=== PATIENT | female | born 1950 | race Caucasian/White ===

== ENCOUNTER → 2018-01-28 07:36 | Outpatient (CLI) | payer MEDICARE, SELFPAY ==
[2018-01-28 07:58] LABS: HCT 36.6 % (36.0-46.0); HGB 11.3 g/dL (12.0-15.5); Mean Corp. HGB Concentration 30.9 g/dL (32.0-36.0); Mean Corpuscular Hemoglobin 23.8 pg (27.0-33.0); Mean Corpuscular Volume 77.1 fL (80-95); Mean Platelet Volume 9.5 fL (8.0-11.0); Platelet Count 279 x1000/uL (130-400); RBC 4.75 m/cumm (4.00-5.20); RBC Distribution Width 17.1 % (11.7-14.6); White Blood Cell Count 4.75 k/cumm (4.4-10.8)
[2018-01-28 08:07] LABS: Prothrombin Time 19.4 sec (9.3-10.8)
[2018-01-28 08:26] LABS: Hemoglobin A1C 5.8 % (4.5-6.2)
[2018-01-28 09:23] LABS: ALT 32 U/L (12-78); AST 26 U/L (15-37); Albumin 3.6 g/dL (3.4-5.0); Alkaline Phosphatase 110 U/L (46-116); Anion Gap 4.5 mmol/L (3-11); BUN 18 mg/dL (7-18); Bilirubin, Total 0.4 mg/dL (0.2-1.0); CO2 30.5 mmol/L (21.0-32.0); CREATININE 0.94 mg/dL (0.55-1.02); Calcium 8.7 mg/dL (8.5-10.1); Chloride 108 mmol/L (98-107); Cholesterol 187 mg/dL (50-200); Estimated GFR 59.04 (mL/min/1.73m2); Glucose 97 mg/dL (70-100); HDL Cholesterol 42 mg/dL (40-60); LDL CHOLESTEROL 118 mg/dL (<100); Potassium 3.8 mmol/L (3.5-5.1); Sodium 143 mmol/L (136-145); Total Protein 6.4 g/dL (6.4-8.2); Triglyceride 147 mg/dL (30-150)
== END ==
PROVIDERS: PCP Family Medicine; Visit Provider Family Medicine
DX: E11.9 Type 2 diabetes mellitus without complications (principal); I35.8 Other nonrheumatic aortic valve disorders; I10 Essential (primary) hypertension; D64.9 Anemia, unspecified; Z95.2 Presence of prosthetic heart valve; Z79.01 Long term (current) use of anticoagulants
CPT/HCPCS: 36415; 80053; 80061; 83721; 85027; 83036; 85610

== ENCOUNTER 2018-03-08 12:56 | Outpatient (CLI) | payer MEDICARE, SELFPAY ==
[2018-03-08 13:50] LABS: INR 2.2 (1.0-3.5); Prothrombin Time 20.7 sec (9.3-10.8)
== END 2018-03-08 13:16 ==
PROVIDERS: PCP Family Medicine; Visit Provider Family Medicine
DX: I35.0 Nonrheumatic aortic (valve) stenosis (principal); Z95.2 Presence of prosthetic heart valve; Z79.01 Long term (current) use of anticoagulants
CPT/HCPCS: 36415; 85610

== ENCOUNTER 2018-03-15 16:34 | Outpatient (CLI) | payer MEDICARE, SELFPAY ==
[2018-03-15 17:35] LABS: INR 3.2 (1.0-3.5); Prothrombin Time 30.1 sec (9.3-10.8)
== END 2018-03-15 16:54 ==
PROVIDERS: PCP Family Medicine; Visit Provider Family Medicine
DX: I08.0 Rheumatic disorders of both mitral and aortic valves (principal); Z79.01 Long term (current) use of anticoagulants; Z95.2 Presence of prosthetic heart valve
CPT/HCPCS: 36415; 85610

== ENCOUNTER 2018-03-22 13:14 | Outpatient (CLI) | payer MEDICARE, SELFPAY ==
[2018-03-22 14:03] LABS: INR 2.7 (1.0-3.5); Prothrombin Time 25.3 sec (9.3-10.8)
[2018-03-22 14:26] LABS: HCT 35.6 % (36.0-46.0)
== END 2018-03-22 13:34 ==
PROVIDERS: PCP Family Medicine; Visit Provider Family Medicine
DX: D64.9 Anemia, unspecified (principal); Z95.2 Presence of prosthetic heart valve; Z79.01 Long term (current) use of anticoagulants; I35.8 Other nonrheumatic aortic valve disorders
CPT/HCPCS: 36415; 85014; 85018; 85610

== ENCOUNTER 2018-04-19 13:07 | Outpatient (CLI) | payer MEDICARE, SELFPAY ==
[2018-04-19 14:02] LABS: Prothrombin Time 28.1 sec (9.3-10.8)
== END 2018-04-19 13:27 ==
PROVIDERS: PCP Family Medicine; Visit Provider Family Medicine
DX: I35.8 Other nonrheumatic aortic valve disorders (principal); Z95.2 Presence of prosthetic heart valve; Z79.01 Long term (current) use of anticoagulants
CPT/HCPCS: 36415; 85610

== ENCOUNTER 2018-05-14 15:01 | Emergency (ER) | payer MEDICARE, SELFPAY ==
--- NOTE | 2018-05-14 15:06 | NUR.NOTE ---
Nursing Note:Went to waiting room to begin triage process, patient has gone to the bathroom
[2018-05-14 15:08] VITALS: BP 171/83; PULSE 89; RESP 16; TEMP 36.4; O2SAT 100
--- NOTE | 2018-05-14 16:44 | W.ED.GENAD ---
Discharge Plan Disposition Patient Disposition: HOME Condition: Improving Discharge Details Chief Complaint: DentalOral Clinical Impression: Tongue laceration, Supratherapeutic INR Primary Care Provider: Radhika Irving ED Provider: Laura Sheppard Home Meds and New Rx's Prescriptions: Continue amoxicillin 500 MG capsule 2,000 mg PO ONCE RF: 0 Metoprolol Succinate 50 MG TAB.ER.24H 50 mg PO DAILY Qty: 90 RF: 12 fluticasone [Flonase Allergy Relief] 9.9 ML spray,suspension 1 spray NS HS RF: 0 atorvastatin [Lipitor] 40 MG tablet 1 tab PO HS Qty: 90 RF: 3 warfarin 2.5 MG tablet 1 - 2 tab PO DAILY Qty: 180 RF: 3 potassium chloride 20 MEQ tablet,ER particles/crystals 1 tab PO DAILY Qty: 90 RF: 3 omeprazole 20 MG capsule,delayed release(DR/EC) 1 cap PO DAILY Qty: 90 RF: 3 hydrochlorothiazide 25 MG tablet 25 mg PO DAILY Qty: 90 RF: 12 albuterol sulfate [ProAir HFA] 8.5 GM HFA aerosol inhaler 1 - 2 puff Inhalation Q4H PRN Qty: 3 RF: 2 escitalopram oxalate [Lexapro] 10 MG tablet 1 tab PO DAILY Qty: 90 RF: 3 Discharge Instructions Instructions: Laceration (ED) Additional Instructions: Hold your Coumadin dose tonight. Take half of your Coumadin dose tomorrow night then resume your normal Coumadin dosing on Thursday night. Reapply Gelfoam to your tongue if the bleeding restarts. Follow-up with your primary care doctor's appointment on Thursday. Call your primary care doctor's office on Thursday to arrange for an INR check on Thursday. Return immediately to the emergency department any worsening or new concerning symptoms. Discharge Data Discharge Date/Time-TO BE ENTERED AT DEPARTURE: 05/14/18 17:54 Discharge Physician: Laura Sheppard Medical Decision Making 67 yo F with a history of aortic valve replacement on Coumadin who presents for persistent oozing from superficial laceration on tongue sustained this morning after biting her tongue accidentally. There is an approximate 1-2 mm superficial laceration on top of tongue with mild oozing. No open gaping wounds. Patient appears nontoxic and in no acute distress. Blood pressure mildly hypertensive. Heart rate within normal limits. Remainder vitals within normal limits. Will check PT/INR and place 1 suture to area. 1740 -- 2 vicryl sutures placed and area covered with gelfoam and bleeding stopped. INR 4.5. In the setting of minor bleeding, will hold dose of coumadin tonight. Pt states she would rather also half her dose of coumadin tomorrow night and will have her INR checked Thursday. Pt has appt with pcp in 5 days. Instructed to return with any worsening or new concerning symptoms. Patient was given remainder of Gelfoam packet for home in case bleeding returns. She was sent home with Gelfoam and gauze still in place and was instructed to remove this in the next couple hours. She was instructed to avoid hot foods and eat cold soft foods including cold liquids, yogurt, milk shakes. HPI General Mode of arrival: ambulatory. Date/Time Provider Initiated Documentation: 05/14/18 15:03. Limitations to Documentation: no limitations. Information obtained by: patient. HPI Narrative: Patient is a 67-year-old female who presents with persistent bleeding from a tongue laceration sustained today after she bit her tongue while eating. Patient is on Coumadin for aortic valve replacement. States her last INR check was 3 weeks ago and it was 3.0. She denies any dizziness, chest pain or shortness of breath. Related Data Home Medications Medication Instructions Recorded Confirmed amoxicillin 2,000 mg PO ONCE cap 08/22/13 05/14/18 fluticasone [Flonase Allergy 1 spray NS HS 05/07/17 05/14/18 Relief] albuterol sulfate [ProAir HFA] 1 - 2 puff INHALATION Q4H PRN #3 09/17/17 05/14/18 inhaler atorvastatin [Lipitor] 1 tab PO HS #90 tab 09/17/17 05/14/18 escitalopram oxalate [Lexapro] 1 tab PO DAILY #90 tab 09/17/17 hydrochlorothiazide 25 mg PO DAILY #90 tab 09/17/17 omeprazole 1 cap PO DAILY #90 cap 09/17/17 05/14/18 potassium chloride 1 tab PO DAILY #90 tab 09/17/17 warfarin 1 - 2 tab PO DAILY #180 tab 09/17/17 05/14/18 Previous Rx's Medication Instructions Recorded albuterol sulfate [ProAir HFA] 1 - 2 puff INHALATION Q4H PRN #3 09/17/17 inhaler atorvastatin [Lipitor] 1 tab PO HS #90 tab 09/17/17 escitalopram oxalate [Lexapro] 1 tab PO DAILY #90 tab 09/17/17 hydrochlorothiazide 25 mg PO DAILY #90 tab 09/17/17 omeprazole 1 cap PO DAILY #90 cap 09/17/17 potassium chloride 1 tab PO DAILY #90 tab 09/17/17 warfarin 1 - 2 tab PO DAILY #180 tab 09/17/17 Allergies Allergy/AdvReac Type Severity Reaction Status Date / Time sulfamethoxazole Allergy Severe chills,gillian Unverified 05/14/18 15:38 [From Bactrim] es,bumps trimethoprim [From Bactrim] Allergy Severe chills,gillian Unverified 05/14/18 15:38 es,bumps pollen extracts Allergy Intermediate Unverified 05/14/18 15:38 General Stated Complaint: DentalOral CHAD: 4 Review of Systems Review of Systems All systems reviewed & are unremarkable except as noted in HPI and below Constitutional Reports as per HPI, Denies chills and Denies fever(s) Eyes Denies blurry vision ENT Denies dizziness, Denies sore throat and Denies throat swelling Cardiovascular Denies chest pain and Denies dyspnea Respiratory Denies dyspnea Gastrointestinal Denies abdominal pain, Denies diarrhea and Denies vomiting Genitourinary Denies hematuria and Denies dysuria Musculoskeletal Denies back pain and Denies numbness Integumentary/Breasts Denies lesions and Denies rash Neurologic Denies dizziness and Denies numbness Allergic/Immunologic Denies throat swelling PFSH Family History Mother Neoplasm Father Diabetes Alcohol abuse Heart disease Cerebrovascular accident Brother No problems noted. Grandfather Heart disease Grandfather No problems noted. Grandmother Neoplasm Grandmother Depression Son No problems noted. Daughter No problems noted. Social History Smoking/Tobacco Use Status: Never Surgical History Colonoscopy - MAC (~2004) Endometrial Biopsy (~2002) Extraction of cataract Kidney Stone Extraction (~1997) Exam Const General: cooperative, healthy appearing and no acute distress HENMT Head: normal to inspection Mouth: other Mouth/tongue images: 1. 2 mm superficial laceration noted to top of tongue with oozing blood. Throat: posterior oropharynx normal Eyes General: appearance normal, both eyes and all related structures Neck Neck: normal visual inspection Resp Effort & Inspection: normal respiratory effort and able to speak in complete sentences Cardio Rate: regular rate Skin General skin exam: no rashes or lesions noted Neuro General: alert, awake and oriented x3 Motor: muscle tone normal throughout Extrem General: normal to inspection and full ROM Psych Appearance: grossly normal Affect: normal affect Course Vital Signs Temperature 97.5 F L 05/14/18 15:08 Pulse 89 05/14/18 15:08 Respiratory Rate 16 05/14/18 15:08 Blood Pressure 171/83 H 05/14/18 15:08 Pulse Oximetry 100 05/14/18 15:08 Temperature 97.5 F L 05/14/18 15:08 Temperature Source Temporal Artery Scan 05/14/18 15:08 Pulse 89 05/14/18 15:08 Respiratory Rate 16 05/14/18 15:08 Respiratory Effort Non-Labored 05/14/18 15:10 Blood Pressure 171/83 H 05/14/18 15:08 Blood Pressure Position Sitting 05/14/18 15:08 Pulse Oximetry 100 05/14/18 15:08 Oxygen Delivery Method Room Air 05/14/18 15:08 Oxygen Flow Rate 0 05/14/18 15:08 Pain Level 0 05/14/18 15:08 Procedures Laceration Laceration 1: Site: other (tongue) Size (cm): 0.2 Local Anesthetic: other anesthetic (viscous lidocaine) Skin layer closed with: vicryl Size (cm): 4-0 Number of sutures: 2 Technique: simple, interrupted
[2018-05-14 16:45] LABS: Prothrombin Time 41.4 sec (9.3-10.8)
[2018-05-14] MEDS: Lidocaine 2% Viscous 15 ML CUP (16:46)
[2018-05-14 17:00] LABS: INR 4.5 (1.0-3.5)
[2018-05-14] MEDS: Gelatin SPONGE 12-7 MM PKT 1 EACH TP (17:00)
[2018-05-14 17:40] VITALS: BP 175/75; PULSE 101; RESP 18; O2SAT 99
[2018-05-14 17:50] VITALS: BP 175/75; PULSE 101; RESP 18; O2SAT 99
== END 2018-05-14 17:54 | disposition home or self-care (01) ==
LOC: ER 18:23
PROVIDERS: Emergency Provider Physician Assistant; PCP Family Medicine
DX: S00.572A Other superficial bite of oral cavity, initial encounter (principal); X58.XXXA Exposure to other specified factors, initial encounter; R79.1 Abnormal coagulation profile; T45.515A Adverse effect of anticoagulants, initial encounter; Z79.01 Long term (current) use of anticoagulants; I10 Essential (primary) hypertension
CPT/HCPCS: 12011; 85610

== ENCOUNTER 2018-05-15 08:42 | Emergency (ER) | payer MEDICARE, SELFPAY ==
[2018-05-15 08:47] VITALS: BP 151/64; PULSE 96; RESP 16; TEMP 36.6; O2SAT 100
--- NOTE | 2018-05-15 09:18 | W.ED.GENAD ---
Discharge Plan Disposition Patient Disposition: HOME Condition: Stable Discharge Details Chief Complaint: Recheck Clinical Impression: Oral bleeding Primary Care Provider: Radhika Irving ED Provider: Laura Sheppard Home Meds and New Rx's Prescriptions: Continue amoxicillin 500 MG capsule 2,000 mg PO ONCE RF: 0 Metoprolol Succinate 50 MG TAB.ER.24H 50 mg PO DAILY Qty: 90 RF: 12 fluticasone [Flonase Allergy Relief] 9.9 ML spray,suspension 1 spray NS HS RF: 0 atorvastatin [Lipitor] 40 MG tablet 1 tab PO HS Qty: 90 RF: 3 warfarin 2.5 MG tablet 1 - 2 tab PO DAILY Qty: 180 RF: 3 omeprazole 20 MG capsule,delayed release(DR/EC) 1 cap PO DAILY Qty: 90 RF: 3 albuterol sulfate [ProAir HFA] 8.5 GM HFA aerosol inhaler 1 - 2 puff Inhalation Q4H PRN Qty: 3 RF: 2 Discharge Instructions Instructions: Laceration (ED), Acute Wound Care (ED) Additional Instructions: If the Gelfoam moves, or falls out, or becomes saturated with blood, replaced with another half piece of Gelfoam and covered with a piece of gauze. Keep the area covered with Gelfoam and gauze for the next 2 days. Follow-up with your primary care doctor or return to the hospital on Thursday for recheck INR. If you continue to have bleeding today, consider holding your dose of Coumadin tonight. If the bleeding stops, half your dose of Coumadin tonight. Resume your normal Coumadin dosing tomorrow. Return immediately to the emergency department any worsening or new concerning symptoms. Discharge Data Discharge Date/Time-TO BE ENTERED AT DEPARTURE: 05/15/18 10:36 Discharge Physician: Laura Sheppard Medical Decision Making 67-year-old female with a history of aortic valve replacement on Coumadin who presents for persistent tongue bleeding. She was seen here yesterday for a tongue laceration, had 2 Vicryl sutures placed, Gelfoam and gauze applied. Recheck INR was 4.5, and she held her Coumadin dose last night. Bleeding restarted after drinking fluids in the middle of night. Patient appears nontoxic. BP hypertensive, remainder of vitals within normal limits. 2 Vicryl sutures are noted in place. There is a 1 x 1 cm hematoma with mild oozing of blood to the left of the sutures. No evidence of infection. Gelfoam and gauze was applied over the hematoma and pt was observed for over an hour. The gelfoam was not saturated and was removed and the bleeding stopped. Due to concern for persistent bleeding due to movement of tongue with drinking and eating, 3 drops of phenylephrine/lidocaine solution were applied to a new piece of gelfoam and then a piece of gauze was placed over the gelfoam. When she went home last night, she removed the Gelfoam shortly after. It appears that the hematoma is likely the source of the bleeding, and if patient is able to keep the Gelfoam and gauze in place, the blood may resorb. She was given a packet of Gelfoam and gauze for home to replace if the Gelfoam falls out or become saturated. Offered to check another INR, but patient is declining and states she would rather check this Thursday as previously planned. Patient instructed to return here immediately with any worsening or new concerning symptoms HPI General Mode of arrival: ambulatory. Date/Time Provider Initiated Documentation: 05/15/18 09:11. Limitations to Documentation: no limitations. Information obtained by: patient. HPI Narrative: 67-year-old female with a history of aortic valve replacement on Coumadin who presents for recheck for persistent tongue bleeding. Patient was seen here yesterday for a tongue laceration after she bit her tongue while eating. She had 2 Vicryl sutures placed, Gelfoam and her INR was noted to be 4.5 and she was instructed to hold her coumadin dose last night, half the dose tonight, and resume her normal dosing tomorrow. She states when she got home last night her bleeding resolved for 6 hours, and then when she drank fluids in the night, she awoke to a mouthful of blood in the morning. She denies fever, chest pain, shortness of breath, headache or dizziness. Related Data Home Medications Medication Instructions Recorded Confirmed amoxicillin 2,000 mg PO ONCE cap 08/22/13 05/15/18 fluticasone [Flonase Allergy 1 spray NS HS 05/07/17 05/15/18 Relief] albuterol sulfate [ProAir HFA] 1 - 2 puff INHALATION Q4H PRN #3 09/17/17 05/15/18 inhaler atorvastatin [Lipitor] 1 tab PO HS #90 tab 09/17/17 05/15/18 omeprazole 1 cap PO DAILY #90 cap 09/17/17 05/15/18 warfarin 1 - 2 tab PO DAILY #180 tab 09/17/17 05/15/18 Previous Rx's Medication Instructions Recorded albuterol sulfate [ProAir HFA] 1 - 2 puff INHALATION Q4H PRN #3 09/17/17 inhaler atorvastatin [Lipitor] 1 tab PO HS #90 tab 09/17/17 omeprazole 1 cap PO DAILY #90 cap 09/17/17 warfarin 1 - 2 tab PO DAILY #180 tab 09/17/17 Allergies Allergy/AdvReac Type Severity Reaction Status Date / Time sulfamethoxazole Allergy Severe chills,gillian Unverified 05/15/18 08:51 [From Bactrim] es,bumps trimethoprim [From Bactrim] Allergy Severe chills,gillian Unverified 05/15/18 08:51 es,bumps pollen extracts Allergy Intermediate Unverified 05/15/18 08:51 General Stated Complaint: Recheck CHAD: 5 Review of Systems Review of Systems All systems reviewed & are unremarkable except as noted in HPI and below Constitutional Reports as per HPI, Denies chills and Denies fever(s) Eyes Denies blurry vision ENT Denies dizziness, Denies sore throat and Denies throat swelling Cardiovascular Denies chest pain and Denies dyspnea Respiratory Denies dyspnea Gastrointestinal Denies abdominal pain, Denies diarrhea and Denies vomiting Genitourinary Denies hematuria and Denies dysuria Musculoskeletal Denies back pain and Denies numbness Integumentary/Breasts Denies lesions and Denies rash Neurologic Denies dizziness and Denies numbness Allergic/Immunologic Denies throat swelling Exam Const General: cooperative, healthy appearing and no acute distress HENMT Head: normal to inspection Mouth: other (2-0 Vicryl sutures noted in place. To the left of the Vicryl sutures is an approximately 1 x 1 cm hematoma with mild oozing of blood. There is no induration or fluctuance.) Throat: posterior oropharynx normal Eyes General: appearance normal, both eyes and all related structures Neck Neck: normal visual inspection Resp Effort & Inspection: normal respiratory effort and able to speak in complete sentences Cardio Rate: regular rate Skin General skin exam: no rashes or lesions noted Neuro General: alert, awake and oriented x3 Motor: muscle tone normal throughout Extrem General: normal to inspection and full ROM Psych Appearance: grossly normal Affect: normal affect Course Vital Signs Temperature 97.9 F 05/15/18 08:47 Pulse 96 H 05/15/18 08:47 Respiratory Rate 16 05/15/18 08:47 Blood Pressure 151/64 H 05/15/18 08:47 Pulse Oximetry 100 05/15/18 08:47 Temperature 97.9 F 05/15/18 08:47 Temperature Source Skin 05/15/18 08:47 Pulse 96 H 05/15/18 08:47 Respiratory Rate 16 05/15/18 08:47 Respiratory Effort Non-Labored 05/15/18 08:49 Blood Pressure 151/64 H 05/15/18 08:47 Pulse Oximetry 100 05/15/18 08:47 Pain Level 0 05/15/18 08:47
[2018-05-15] MEDS: Gelatin SPONGE 12-7 MM PKT 1 EACH TP (10:18)
== END 2018-05-15 10:36 | disposition home or self-care (01) ==
LOC: ER 10:37
PROVIDERS: Emergency Provider Physician Assistant; PCP Family Medicine
DX: S01.552A Open bite of oral cavity, initial encounter (principal); X58.XXXA Exposure to other specified factors, initial encounter; Z79.01 Long term (current) use of anticoagulants

== ENCOUNTER 2018-05-15 17:59 | Emergency (ER) | payer MEDICARE, SELFPAY ==
[2018-05-15 18:03] VITALS: BP 146/105; PULSE 104; RESP 16; O2SAT 99
[2018-05-15] MEDS: Silver Nitrate Stick 1 EACH (18:16)
[2018-05-15] MEDS: Gelatin SPONGE 12-7 MM PKT 1 EACH TP ×2 (18:30→20:17)
--- NOTE | 2018-05-15 18:31 | W.ED.GENAD ---
Discharge Plan Disposition Patient Disposition: HOME Condition: Stable Discharge Details Chief Complaint: Recheck Clinical Impression: Tongue laceration Primary Care Provider: Radhika Irving ED Provider: Laura Sheppard Home Meds and New Rx's Prescriptions: New amoxicillin-pot clavulanate 400-57 mg/5 mL suspension for reconstitution 10 ml PO BID 2 Days Qty: 40 RF: 0 Continue amoxicillin 500 MG capsule 2,000 mg PO ONCE RF: 0 Metoprolol Succinate 50 MG TAB.ER.24H 50 mg PO DAILY Qty: 90 RF: 12 fluticasone [Flonase Allergy Relief] 9.9 ML spray,suspension 1 spray NS HS RF: 0 atorvastatin [Lipitor] 40 MG tablet 1 tab PO HS Qty: 90 RF: 3 warfarin 2.5 MG tablet 1 - 2 tab PO DAILY Qty: 180 RF: 3 omeprazole 20 MG capsule,delayed release(DR/EC) 1 cap PO DAILY Qty: 90 RF: 3 albuterol sulfate [ProAir HFA] 8.5 GM HFA aerosol inhaler 1 - 2 puff Inhalation Q4H PRN Qty: 3 RF: 2 Discharge Instructions Instructions: Laceration (ED) Additional Instructions: Follow a clear liquid diet for the next few days. Either hold or half your dose of coumadin tonight. Resume your normal Coumadin dosing tomorrow. Take the antibiotics as directed. Avoid any hot foods or liquids. Mainly drink cool liquids and foods. You will receive a call from certified social workers in health care regarding follow-up with ENT (ears, nose and throat). Return immediately to the emergency department any worsening or new concerning symptoms. Referrals: Saleem Willard MD [ [facility]] - Discharge Data Discharge Physician: Laura Sheppard Medical Decision Making 67-year-old female with history of aortic valve placed on Coumadin who presents for persistent tongue bleeding. Patient was seen here yesterday for a tongue laceration after accidentally biting and had 2 Vicryl sutures placed and covered with Gelfoam. She presented back earlier today for persistent tongue bleeding and had Gelfoam with phenylephrine and lidocaine placed. She states she had no bleeding for 6 hours today and then tonight the bleeding returned again. Patient's INR yesterday was 4.5 and she was instructed to hold her Coumadin dose last night. She declined to check her INR earlier today on her ED visit. She is now agreeable to check an INR at this time. The 2 Vicryl sutures are still noted in place. The hematoma noted earlier does appear more flat and is oozing, and likely has ruptured from movement of the tongue. There is no pulsatile bleeding. 3 silver nitrate sticks were used to stop the bleeding and there still appears to be mild oozing. Another piece of Gelfoam with 3 drops of phenylephrine/lidocaine were placed and covered with a 2 x 2 gauze. I am concerned to use any other form of treatment that can cause a clot, as any movement of her tongue or eating, will likely rupture it. Will check a repeat INR and call [facility] ENT for any further recommendations. 1844 -- d/w ENT - recommend washing with half-strength hydrogen peroxide, placing a [id number] stitch with 3-0 chromic and cover with silver nitrate if needed. Recommend f/u with ENT. Patient has a history of aortic valve replacement. Will cover with Augmentin for 48 hours. Due to difficulty with swallowing and need to be on a clear liquid diet, will give Augmentin suspension. Dose of 10 mg Augmentin given here in bottle for home. Patient was instructed on clear liquid diet and avoiding hot foods or drinks. Patient was instructed to return here with any worsening symptoms. 2009 -- Pt still had some bleeding and another gelfoam was placed on top of remaining gelfoam which is saturated with blood. There is some oozing around the base layer Gelfoam. Multiple 2 x 2's and Kerlix were wrapped around and pressure held and bleeding appears to have been controlled. Patient was given multiple Kerlix and gauze for home and additional gelfoam. Pt had more bleeding again prior to dc and second layer of Gelfoam was removed and Surgicel was placed on top followed by 2 x 2 gauze and Kerlix. HPI General Mode of arrival: ambulatory. Date/Time Provider Initiated Documentation: 05/15/18 18:14. Limitations to Documentation: no limitations. Information obtained by: patient. HPI Narrative: Pt is a 67yo F who presents for recheck of persistent tongue bleeding. Pt was seen here earlier today for persistent tongue bleeding after sustained a laceration after biting yesterday. Patient has a history of aortic valve replacement and is on Coumadin. INR yesterday was 4.5. Yesterday she had 2 Vicryl sutures placed. This morning she returned and there was a hematoma which is bleeding near the area, a piece of Gelfoam with phenylephrine and lidocaine was placed to the affected area. Patient states she went home today and had no bleeding for 6 hours and then just a little while ago, the bleeding returned and saturated the gelfoam. Related Data Home Medications Medication Instructions Recorded Confirmed amoxicillin 2,000 mg PO ONCE cap 08/22/13 05/15/18 fluticasone [Flonase Allergy 1 spray NS HS 05/07/17 05/15/18 Relief] albuterol sulfate [ProAir HFA] 1 - 2 puff INHALATION Q4H PRN #3 09/17/17 05/15/18 inhaler atorvastatin [Lipitor] 1 tab PO HS #90 tab 09/17/17 05/15/18 omeprazole 1 cap PO DAILY #90 cap 09/17/17 05/15/18 warfarin 1 - 2 tab PO DAILY #180 tab 09/17/17 05/15/18 amoxicillin-pot clavulanate 10 ml PO BID 2 Days #40 ml 05/15/18 Previous Rx's Medication Instructions Recorded albuterol sulfate [ProAir HFA] 1 - 2 puff INHALATION Q4H PRN #3 09/17/17 inhaler atorvastatin [Lipitor] 1 tab PO HS #90 tab 09/17/17 omeprazole 1 cap PO DAILY #90 cap 09/17/17 warfarin 1 - 2 tab PO DAILY #180 tab 09/17/17 amoxicillin-pot clavulanate 10 ml PO BID 2 Days #40 ml 05/15/18 Allergies Allergy/AdvReac Type Severity Reaction Status Date / Time sulfamethoxazole Allergy Severe chills,gillian Unverified 05/15/18 18:07 [From Bactrim] es,bumps trimethoprim [From Bactrim] Allergy Severe chills,gillian Unverified 05/15/18 18:07 es,bumps pollen extracts Allergy Intermediate Unverified 05/15/18 18:07 General Stated Complaint: Recheck CHAD: 4 Review of Systems Review of Systems All systems reviewed & are unremarkable except as noted in HPI and below Exam Const General: cooperative, healthy appearing and no acute distress [facility] Head: normal to inspection Mouth: other Mouth/tongue images: 1. A 1 x 1 cm hematoma noted to the left of 2 Vicryl sutures with mild oozing on the distal aspect. Hematoma appears flatter compared to earlier today. Eyes General: appearance normal, both eyes and all related structures Neck Neck: normal visual inspection Resp Effort & Inspection: normal respiratory effort and able to speak in complete sentences Cardio Rate: regular rate Skin General skin exam: no rashes or lesions noted Neuro General: alert, awake and oriented x3 Motor: muscle tone normal throughout Extrem General: normal to inspection and full ROM Psych Appearance: grossly normal Affect: normal affect Course Vital Signs Pulse 104 H 05/15/18 18:03 Respiratory Rate 16 05/15/18 18:03 Blood Pressure 146/105 H 05/15/18 18:03 Pulse Oximetry 99 05/15/18 18:03 Pulse 104 H 05/15/18 18:03 Respiratory Rate 16 05/15/18 18:03 Respiratory Effort Non-Labored 05/15/18 18:06 Blood Pressure 146/105 H 05/15/18 18:03 Pulse Oximetry 99 05/15/18 18:03 Pain Level 0 05/15/18 18:03
--- NOTE | 2018-05-15 18:39 | ED.GENADUL_ITS ---
Discharge Plan Disposition Patient Disposition: HOME Condition: Stable Discharge Details Chief Complaint: Recheck Clinical Impression: Tongue laceration Primary Care Provider: Radhika Irving ED Provider: Laura Sheppard Home Meds and New Rx's Prescriptions: New amoxicillin-pot clavulanate 400-57 mg/5 mL suspension for reconstitution 10 ml PO BID 2 Days Qty: 40 RF: 0 Continue amoxicillin 500 MG capsule 2,000 mg PO ONCE RF: 0 Metoprolol Succinate 50 MG TAB.ER.24H 50 mg PO DAILY Qty: 90 RF: 12 fluticasone [Flonase Allergy Relief] 9.9 ML spray,suspension 1 spray NS HS RF: 0 atorvastatin [Lipitor] 40 MG tablet 1 tab PO HS Qty: 90 RF: 3 warfarin 2.5 MG tablet 1 - 2 tab PO DAILY Qty: 180 RF: 3 omeprazole 20 MG capsule,delayed release(DR/EC) 1 cap PO DAILY Qty: 90 RF: 3 albuterol sulfate [ProAir HFA] 8.5 GM HFA aerosol inhaler 1 - 2 puff Inhalation Q4H PRN Qty: 3 RF: 2 Discharge Instructions Instructions: Laceration (ED) Additional Instructions: Follow a clear liquid diet for the next few days. Either hold or half your dose of coumadin tonight. Resume your normal Coumadin dosing tomorrow. Take the antibiotics as directed. Avoid any hot foods or liquids. Mainly drink cool liquids and foods. You will receive a call from child caregiver regarding follow-up with ENT (ears, nose and throat). Return immediately to the emergency department any worsening or new concerning symptoms. Referrals: Saleem Willard MD [ [facility]] - Discharge Data Discharge Physician: Laura Sheppard Medical Decision Making 67-year-old female with history of aortic valve placed on Coumadin who presents for persistent tongue bleeding. Patient was seen here yesterday for a tongue laceration after accidentally biting and had 2 Vicryl sutures placed and covered with Gelfoam. She presented back earlier today for persistent tongue bleeding and had Gelfoam with phenylephrine and lidocaine placed. She states she had no bleeding for 6 hours today and then tonight the bleeding returned again. Patient's INR yesterday was 4.5 and she was instructed to hold her Coumadin dose last night. She declined to check her INR earlier today on her ED visit. She is now agreeable to check an INR at this time. The 2 Vicryl sutures are still noted in place. The hematoma noted earlier does appear more flat and is oozing, and likely has ruptured from movement of the tongue. There is no pulsatile bleeding. 3 silver nitrate sticks were used to stop the bleeding and there still appears to be mild oozing. Another piece of Gelfoam with 3 drops of phenylephrine/lidocaine were placed and covered with a 2 x 2 gauze. I am concerned to use any other form of treatment that can cause a clot, as any movement of her tongue or eating, will likely rupture it. Will check a repeat INR and call [facility]NT for any further recommendations. 1844 -- d/w ENT - recommend washing with half-strength hydrogen peroxide, placing a [id number] stitch with 3-0 chromic and cover with silver nitrate if needed. Recommend f/u with ENT. Patient has a history of aortic valve replacement. Will cover with Augmentin for 48 hours. Due to difficulty with swallowing and need to be on a clear liquid diet, will give Augmentin suspension. Dose of 10 mg Augmentin given here in bottle for home. Patient was instructed on clear liquid diet and avoiding hot foods or drinks. Patient was instructed to return here with any worsening symptoms. 2009 -- Pt still had some bleeding and another gelfoam was placed on top of remaining gelfoam which is saturated with blood. There is some oozing around the base layer Gelfoam. Multiple 2 x 2's and Kerlix were wrapped around and pressure held and bleeding appears to have been controlled. Patient was given multiple Kerlix and gauze for home and additional gelfoam. Pt had more bleeding again prior to dc and second layer of Gelfoam was removed and Surgicel was placed on top followed by 2 x 2 gauze and Kerlix. HPI General Mode of arrival: ambulatory . Date/Time Provider Initiated Documentation: 05/15/18 18:14 . Limitations to Documentation: no limitations . Information obtained by: patient . HPI Narrative: Pt is a 67yo F who presents for recheck of persistent tongue bleeding. Pt was seen here earlier today for persistent tongue bleeding after sustained a laceration after biting yesterday. Patient has a history of aortic valve replacement and is on Coumadin. INR yesterday was 4.5. Yesterday she had 2 Vicryl sutures placed. This morning she returned and there was a hematoma which is bleeding near the area, a piece of Gelfoam with phenylephrine and lidocaine was placed to the affected area. Patient states she went home today and had no bleeding for 6 hours and then just a little while ago, the bleeding returned and saturated the gelfoam. Related Data Home Medications Medication Instructions Recorded Confirmed amoxicillin 2,000 mg PO ONCE cap 08/22/13 05/15/18 fluticasone [Flonase Allergy 1 spray NS HS 05/07/17 05/15/18 Relief] albuterol sulfate [ProAir HFA] 1 - 2 puff INHALATION Q4H PRN #3 09/17/17 inhaler atorvastatin [Lipitor] 1 tab PO HS #90 tab 09/17/17 05/15/18 omeprazole 1 cap PO DAILY #90 cap 09/17/17 05/15/18 warfarin 1 - 2 tab PO DAILY #180 tab 09/17/17 05/15/18 amoxicillin-pot clavulanate 10 ml PO BID 2 Days #40 ml 05/15/18 Previous Rx's Medication Instructions Recorded albuterol sulfate [ProAir HFA] 1 - 2 puff INHALATION Q4H PRN #3 09/17/17 inhaler atorvastatin [Lipitor] 1 tab PO HS #90 tab 09/17/17 omeprazole 1 cap PO DAILY #90 cap 09/17/17 warfarin 1 - 2 tab PO DAILY #180 tab 09/17/17 amoxicillin-pot clavulanate 10 ml PO BID 2 Days #40 ml 05/15/18 Allergies Allergy/AdvReac Type Severity Reaction Status Date / Time sulfamethoxazole Allergy Severe chills,gillian Unverified 05/15/18 18:07 [From Bactrim] es,bumps trimethoprim [From Bactrim] Allergy Severe chills,gillian Unverified 05/15/18 18:07 es,bumps pollen extracts Allergy Intermediate Unverified 05/15/18 18:07 General Stated Complaint: Recheck CHAD: 4 Review of Systems Review of Systems All systems reviewed & are unremarkable except as noted in HPI and below Exam Const General: cooperative, healthy appearing and no acute distress [facility] Head: normal to inspection Mouth: other Mouth/tongue images: 2 1. A 1 x 1 cm hematoma noted to the left of 2 Vicryl sutures with mild oozing on the distal aspect. Hematoma appears flatter compared to earlier today. Eyes General: appearance normal, both eyes and all related structures Neck Neck: normal visual inspection Resp Effort & Inspection: normal respiratory effort and able to speak in complete sentences Cardio Rate: regular rate Skin General skin exam: no rashes or lesions noted Neuro General: alert, awake and oriented x3 Motor: muscle tone normal throughout Extrem General: normal to inspection and full ROM Psych Appearance: grossly normal Affect: normal affect Course Vital Signs Pulse 104 H 05/15/18 18:03 Respiratory Rate 16 05/15/18 18:03 Blood Pressure 146/105 H 05/15/18 18:03 Pulse Oximetry 99 05/15/18 18:03 Pulse 104 H 05/15/18 18:03 Respiratory Rate 16 05/15/18 18:03 Respiratory Effort Non-Labored 05/15/18 18:06 Blood Pressure 146/105 H 05/15/18 18:03 Pulse Oximetry 99 05/15/18 18:03 Pain Level 0 05/15/18 18:03
[2018-05-15 19:07] LABS: Prothrombin Time 22.2 sec (9.3-10.8)
[2018-05-15] MEDS: Hydrogen Peroxide 3% 480 ML BTL (19:07)
[2018-05-15] MEDS: Lidocaine 2% Viscous 15 ML CUP (19:07)
[2018-05-15 19:11] LABS: INR 2.3 (1.0-3.5)
[2018-05-15] MEDS: Amoxicillin 400 MG/Clav. 57 MG 100 ML BTL 10 ML PO (20:01)
[2018-05-15] MEDS: Cellulose,Oxidized 2X3 PKT 1 EACH MC ×3 (20:31→20:39)
== END 2018-05-15 20:46 | disposition home or self-care (01) ==
PROVIDERS: Emergency Provider Physician Assistant; PCP Family Medicine
DX: S01.552A Open bite of oral cavity, initial encounter (principal); X58.XXXA Exposure to other specified factors, initial encounter; Z79.01 Long term (current) use of anticoagulants
CPT/HCPCS: 36415; 85610

== ENCOUNTER 2018-05-16 02:23 | Emergency (ER) | payer MEDICARE, SELFPAY ==
[2018-05-16] VITALS (15 sets, daily range): BP systolic 139–146; BP diastolic 59–79; PULSE 92–99; RESP 14–21; TEMP 36.3–36.7; O2SAT 99–100
--- NOTE | 2018-05-16 02:48 | W.ED.GENAD ---
Discharge Plan Disposition Patient Disposition: HOME Condition: Stable Discharge Details Chief Complaint: Dizzy/Sync Clinical Impression: Hemorrhage of tongue Primary Care Provider: Radhika Irving ED Provider: Jerome Gandara Home Meds and New Rx's Prescriptions: Continue fluticasone [Flonase Allergy Relief] 9.9 ML spray,suspension 1 spray NS HS RF: 0 atorvastatin [Lipitor] 40 MG tablet 1 tab PO HS Qty: 90 RF: 3 warfarin 2.5 MG tablet 1 - 2 tab PO DAILY Qty: 180 RF: 3 omeprazole 20 MG capsule,delayed release(DR/EC) 1 cap PO DAILY Qty: 90 RF: 3 albuterol sulfate [ProAir HFA] 8.5 GM HFA aerosol inhaler 1 - 2 puff Inhalation Q4H PRN Qty: 3 RF: 2 amoxicillin-pot clavulanate 400-57 mg/5 mL suspension for reconstitution 10 ml PO BID 2 Days Qty: 40 RF: 0 Discharge Instructions Additional Instructions: if you have bleeding again, apply a txa soaked gauze to the wound and hold it there for 20 minutes. If it continues to bleed apply another txa gauze to the wound and hold for 20 minutes. IF it continues to bleed after this return to the emergency department for evaluation Medical Decision Making PT comes in with 2 days of tongue bleeding. Was seen in the ED past 2 days with several stitches placed and surgicell but despite this continue to have bleeding in the anterior superior portion of the tongue. Tonight while standing felt lightheaded, denies chest pain or sob, suspect orthostasis from lack of eating/drinking due to wound but will check cbc to eval for anemia. She still has small oozing area in the bleeding area, will attempt applying txa on the wound oozing stopped after txa soaked gauze placed. Will have nursing place surgicell and gauze and given no significant oral fluids will hydrate IV before she leaves. Cbc shows no significant anemia, likely had orthostasis earlier Differential Diagnosis orthostasis, anemia Lab Data Lab results reviewed: Yes I reviewed the patient's lab results. ECG Data Attestation: I personally reviewed and interpreted this ECG (s) as follows: Prior ECG tracings: not available for review Interpretation: sinus rhythm, pac's, pr 198, rate of 98 HPI General Mode of arrival: wheelchair. Date/Time Provider Initiated Documentation: 05/16/18 02:31. Limitations to Documentation: no limitations. Information obtained by: patient. History of Present Illness 67 year old F presents to the emergency department with the chief complaint of tongue bleeding, described as mild, and is localized to the mouth. Patient reports no radiation. No relieving factors improve symptom(s), No exacerbating factors reported . Related Data Home Medications Medication Instructions Recorded Confirmed fluticasone [Flonase Allergy 1 spray NS HS 05/07/17 05/16/18 Relief] albuterol sulfate [ProAir HFA] 1 - 2 puff INHALATION Q4H PRN #3 09/17/17 05/16/18 inhaler atorvastatin [Lipitor] 1 tab PO HS #90 tab 09/17/17 05/16/18 omeprazole 1 cap PO DAILY #90 cap 09/17/17 05/16/18 warfarin 1 - 2 tab PO DAILY #180 tab 09/17/17 05/16/18 amoxicillin-pot clavulanate 10 ml PO BID 2 Days #40 ml 05/15/18 05/16/18 Previous Rx's Medication Instructions Recorded albuterol sulfate [ProAir HFA] 1 - 2 puff INHALATION Q4H PRN #3 09/17/17 inhaler atorvastatin [Lipitor] 1 tab PO HS #90 tab 09/17/17 omeprazole 1 cap PO DAILY #90 cap 09/17/17 warfarin 1 - 2 tab PO DAILY #180 tab 09/17/17 amoxicillin-pot clavulanate 10 ml PO BID 2 Days #40 ml 05/15/18 Allergies Allergy/AdvReac Type Severity Reaction Status Date / Time sulfamethoxazole Allergy Severe chills,gillian Unverified 05/16/18 02:45 [From Bactrim] es,bumps trimethoprim [From Bactrim] Allergy Severe chills,gillian Unverified 05/16/18 02:45 es,bumps pollen extracts Allergy Intermediate Unverified 05/16/18 02:45 General Stated Complaint: Dizzy/Sync CHAD: 3 Review of Systems Review of Systems All systems reviewed & are unremarkable except as noted in HPI and below Constitutional Denies chills and Denies fever(s) ENT Denies change in voice Cardiovascular Denies chest pain and Denies dyspnea Respiratory Denies dyspnea Gastrointestinal Denies abdominal pain, Denies nausea and Denies vomiting Musculoskeletal Denies joint swelling Exam Const General: no acute distress Orientation: alert HENMT Head: normal to inspection Ears: external ears normal General nose exam: external nose normal Mouth: moist mucous membranes Eyes General: appearance normal, both eyes and all related structures Neck Neck: normal visual inspection Resp Effort & Inspection: normal respiratory effort and able to speak in complete sentences Cardio Rate: regular rate Skin General skin exam: no rashes or lesions noted Neuro General: alert and oriented x3 Extrem General: normal to inspection Psych Mental Status: mental status grossly normal Course Vital Signs Temperature 36.3 C L 05/16/18 02:28 Pulse 95 H 05/16/18 02:28 Respiratory Rate 19 05/16/18 02:28 Blood Pressure 146/59 H 05/16/18 02:28 Pulse Oximetry 100 05/16/18 02:28 Temperature 36.3 C L 05/16/18 02:28 Temperature Source Skin 05/16/18 02:28 Pulse 95 H 05/16/18 02:28 Respiratory Rate 19 05/16/18 02:28 Respiratory Effort Non-Labored 05/16/18 02:33 Blood Pressure 146/59 H 05/16/18 02:28 Pulse Oximetry 100 05/16/18 02:28 Oxygen Delivery Method Room Air 05/16/18 02:28 Oxygen Flow Rate 0 05/16/18 02:28 Pain Level 0 05/16/18 02:28
[2018-05-16 02:57] LABS: HCT 35.9 % (36.0-46.0); HGB 11.1 g/dL (12.0-15.5); Mean Corp. HGB Concentration 30.9 g/dL (32.0-36.0); Mean Corpuscular Hemoglobin 23.7 pg (27.0-33.0); Mean Corpuscular Volume 76.7 fL (80-95); Mean Platelet Volume 9.3 fL (8.0-11.0); Platelet Count 251 x1000/uL (130-400); RBC 4.68 m/cumm (4.00-5.20); RBC Distribution Width 17.1 % (11.7-14.6); White Blood Cell Count 7.57 k/cumm (4.4-10.8)
[2018-05-16] MEDS: Tranexamic Acid 1,000 MG/10 ML VIAL 1000 MG (02:58)
[2018-05-16] MEDS: Normal Saline 1,000 ML 1000 ML IV ×2 (03:10→03:44)
[2018-05-16] MEDS: Normal Saline Flush 10 ML SYR IVP (03:10)
[2018-05-16] MEDS: Cellulose,Oxidized 4X8 1 PACKET MC (03:44)
== END 2018-05-16 04:25 | disposition home or self-care (01) ==
LOC: ER 04:25
PROVIDERS: Emergency Provider Emergency Medicine; PCP Family Medicine
DX: S01.512A Laceration without foreign body of oral cavity, initial encounter (principal); W26.8XXA Contact with other sharp object(s), not elsewhere classified, initial encounter; K14.8 Other diseases of tongue; T45.515A Adverse effect of anticoagulants, initial encounter; Z79.01 Long term (current) use of anticoagulants; I10 Essential (primary) hypertension
CPT/HCPCS: 36415; 36416; 82962; 85027; 93005; 96360; 99284; 93010; J3490

== ENCOUNTER 2018-05-18 14:34 | Outpatient (CLI) | payer MEDICARE, SELFPAY ==
[2018-05-18 15:22] LABS: INR 2.5 (1.0-3.5); Prothrombin Time 23.9 sec (9.3-10.8)
== END 2018-05-18 14:54 ==
PROVIDERS: PCP Family Medicine; Visit Provider Family Medicine
DX: I35.8 Other nonrheumatic aortic valve disorders (principal); Z79.01 Long term (current) use of anticoagulants; Z95.2 Presence of prosthetic heart valve
CPT/HCPCS: 36415; 85610

== ENCOUNTER 2018-05-25 11:58 | Outpatient (CLI) | payer MEDICARE, SELFPAY ==
[2018-05-25 12:40] LABS: INR 2.4 (1.0-3.5); Prothrombin Time 22.3 sec (9.3-10.8)
== END 2018-05-25 12:18 ==
PROVIDERS: PCP Family Medicine; Visit Provider Family Medicine
DX: I35.8 Other nonrheumatic aortic valve disorders (principal); Z79.01 Long term (current) use of anticoagulants; Z95.2 Presence of prosthetic heart valve
CPT/HCPCS: 36415; 85610

== ENCOUNTER 2018-05-31 00:34 | Outpatient (CLI) | payer MEDICARE, SELFPAY ==
--- NOTE | 2018-05-31 15:30 | DI.MAMMO_ITS ---
SYMPTOM/DIAGNOSIS: SCREENING Z12.31 BILATERAL SCREENING MAMMOGRAM: Mammograms were interpreted according to the usual protocol including computer analysis with CAD system, tomosynthesis and C view imaging. Comparison is made with exams from 2015 through 2017. The breasts are composed of fatty density tissue, breast density category A. No suspicious masses or suspicious microcalcifications are seen. There has been no significant change. IMPRESSION: Category 1-A, negative mammogram. Yearly screening mammography is recommended. [facility] ASSESSMENT OF FINDINGS: Negative. Category 1. Patient will receive a letter notifying them of these results. BI-RAD category A. The breasts are almost entirely fatty.
== END 2018-05-31 00:54 ==
PROVIDERS: PCP Family Medicine; Visit Provider Family Medicine
DX: Z12.31 Encounter for screening mammogram for malignant neoplasm of breast (principal)
CPT/HCPCS: 77063; 77067

== ENCOUNTER 2018-06-01 11:42 | Outpatient (CLI) | payer MEDICARE, SELFPAY ==
[2018-06-01 12:16] LABS: INR 1.9 (1.0-3.5); Prothrombin Time 18.6 sec (9.3-10.8)
== END 2018-06-01 12:02 ==
PROVIDERS: PCP Family Medicine; Visit Provider Family Medicine
DX: I35.8 Other nonrheumatic aortic valve disorders (principal); Z95.2 Presence of prosthetic heart valve; Z79.01 Long term (current) use of anticoagulants
CPT/HCPCS: 36415; 85610

== ENCOUNTER 2018-06-08 08:08 | Outpatient (CLI) | payer MEDICARE, SELFPAY ==
[2018-06-08 10:06] LABS: INR 2.3 (1.0-3.5); Prothrombin Time 23.4 sec (9.3-11.0)
== END 2018-06-08 08:28 ==
PROVIDERS: PCP Family Medicine; Visit Provider Family Medicine
DX: I35.8 Other nonrheumatic aortic valve disorders (principal); Z95.2 Presence of prosthetic heart valve; Z79.01 Long term (current) use of anticoagulants
CPT/HCPCS: 36415; 80061; 83721; 85610

== ENCOUNTER 2018-06-16 12:41 | Outpatient (CLI) | payer MEDICARE, SELFPAY ==
[2018-06-16 13:36] LABS: INR 2.4 (1.0-3.5); Prothrombin Time 24.3 sec (9.3-11.0)
== END 2018-06-16 13:01 ==
PROVIDERS: PCP Family Medicine; Visit Provider Family Medicine
DX: I35.8 Other nonrheumatic aortic valve disorders (principal); Z95.2 Presence of prosthetic heart valve; Z79.01 Long term (current) use of anticoagulants
CPT/HCPCS: 36415; 85014; 85018; 85610

== ENCOUNTER 2018-06-23 12:04 | Outpatient (CLI) | payer MEDICARE, SELFPAY ==
[2018-06-23 12:46] LABS: INR 2.2 (1.0-3.5); Prothrombin Time 21.9 sec (9.3-11.0)
== END 2018-06-23 12:24 ==
PROVIDERS: PCP Family Medicine; Visit Provider Family Medicine
DX: I35.8 Other nonrheumatic aortic valve disorders (principal); Z79.01 Long term (current) use of anticoagulants; Z95.2 Presence of prosthetic heart valve
CPT/HCPCS: 36415; 85610

== ENCOUNTER 2018-07-07 11:31 | Outpatient (CLI) | payer MEDICARE, SELFPAY ==
[2018-07-07 12:35] LABS: Prothrombin Time 30.1 sec (9.3-11.0)
== END 2018-07-07 11:51 ==
PROVIDERS: PCP Family Medicine; Visit Provider Family Medicine
DX: I35.0 Nonrheumatic aortic (valve) stenosis (principal); Z79.01 Long term (current) use of anticoagulants; Z95.2 Presence of prosthetic heart valve
CPT/HCPCS: 36415; 85610

== ENCOUNTER 2018-07-19 10:21 | Outpatient (CLI) | payer MEDICARE, SELFPAY ==
[2018-07-19 11:04] LABS: INR 2.9 (0.9-1.1); Prothrombin Time 28.9 sec (9.3-11.0)
== END 2018-07-19 10:41 ==
PROVIDERS: Visit Provider Family Medicine
DX: I35.8 Other nonrheumatic aortic valve disorders (principal); Z79.01 Long term (current) use of anticoagulants
CPT/HCPCS: 36415; 85610

== ENCOUNTER 2018-08-23 09:35 | Outpatient (CLI) | payer MEDICARE, SELFPAY ==
[2018-08-23 10:40] LABS: Prothrombin Time 40.9 sec (9.3-11.0)
[2018-08-23 10:55] LABS: Cholesterol 335 mg/dL (50-200); HDL Cholesterol 45 mg/dL (40-60); LDL CHOLESTEROL 239 mg/dL (<100); Triglyceride 224 mg/dL (30-150)
== END 2018-08-23 09:55 ==
PROVIDERS: Visit Provider Family Medicine
DX: I10 Essential (primary) hypertension (principal); I35.0 Nonrheumatic aortic (valve) stenosis; Z95.2 Presence of prosthetic heart valve; Z79.01 Long term (current) use of anticoagulants
CPT/HCPCS: 36415; 80061; 83721; 85610

== ENCOUNTER 2018-08-30 09:38 | Outpatient (CLI) | payer MEDICARE, SELFPAY ==
[2018-08-30 10:55] LABS: INR 2.1 (0.9-1.1); Prothrombin Time 20.7 sec (9.3-11.0)
== END 2018-08-30 09:58 ==
PROVIDERS: Visit Provider Family Medicine
DX: I35.0 Nonrheumatic aortic (valve) stenosis (principal); Z95.4 Presence of other heart-valve replacement; Z79.01 Long term (current) use of anticoagulants
CPT/HCPCS: 36415; 85610

== ENCOUNTER 2018-09-06 10:00 | Outpatient (CLI) | payer MEDICARE, SELFPAY ==
[2018-09-06 11:43] LABS: INR 2.4 (0.9-1.1); Prothrombin Time 24.1 sec (9.3-11.0)
== END 2018-09-06 10:20 ==
PROVIDERS: PCP Family Medicine; Visit Provider Family Medicine
DX: I35.0 Nonrheumatic aortic (valve) stenosis (principal); Z95.4 Presence of other heart-valve replacement; Z79.01 Long term (current) use of anticoagulants
CPT/HCPCS: 36415; 85610

== ENCOUNTER 2018-09-13 12:44 | Outpatient (CLI) | payer MEDICARE, SELFPAY ==
[2018-09-13 13:29] LABS: INR 3.5 (0.9-1.1); Prothrombin Time 35.3 sec (9.3-11.0)
== END 2018-09-13 13:04 ==
PROVIDERS: PCP Family Medicine; Visit Provider Family Medicine
DX: I35.0 Nonrheumatic aortic (valve) stenosis (principal); Z79.01 Long term (current) use of anticoagulants; Z95.4 Presence of other heart-valve replacement
CPT/HCPCS: 36415; 85610

== ENCOUNTER 2018-09-27 10:38 | Outpatient (CLI) | payer MEDICARE, SELFPAY ==
[2018-09-27 11:15] LABS: INR 3.8 (0.9-1.1); Prothrombin Time 38.8 sec (9.3-11.0)
== END 2018-09-27 10:58 ==
PROVIDERS: PCP Family Medicine; Visit Provider Family Medicine
DX: I35.0 Nonrheumatic aortic (valve) stenosis (principal); Z79.01 Long term (current) use of anticoagulants; Z95.4 Presence of other heart-valve replacement
CPT/HCPCS: 36415; 85610

== ENCOUNTER 2018-10-04 10:48 | Outpatient (CLI) | payer MEDICARE, SELFPAY ==
[2018-10-04 12:03] LABS: INR 3.1 (0.9-1.1); Prothrombin Time 31.1 sec (9.3-11.0)
== END 2018-10-04 11:08 ==
PROVIDERS: PCP Family Medicine; Visit Provider Family Medicine
DX: I35.0 Nonrheumatic aortic (valve) stenosis (principal); Z95.4 Presence of other heart-valve replacement; Z79.01 Long term (current) use of anticoagulants
CPT/HCPCS: 36415; 85610

== ENCOUNTER 2018-10-11 12:34 | Outpatient (CLI) | payer MEDICARE, SELFPAY ==
[2018-10-11 13:17] LABS: INR 3.3 (0.9-1.1); Prothrombin Time 33.1 sec (9.3-11.0)
== END 2018-10-11 12:54 ==
PROVIDERS: PCP Family Medicine; Visit Provider Family Medicine
DX: I35.0 Nonrheumatic aortic (valve) stenosis (principal); Z95.2 Presence of prosthetic heart valve; Z79.01 Long term (current) use of anticoagulants
CPT/HCPCS: 36415; 85610

== ENCOUNTER 2018-10-19 10:21 | Outpatient (CLI) | payer MEDICARE, SELFPAY ==
[2018-10-19 10:48] LABS: INR 2.5 (0.9-1.1); Prothrombin Time 24.8 sec (9.3-11.0)
== END 2018-10-19 10:41 ==
PROVIDERS: PCP Family Medicine; Visit Provider Family Medicine
DX: I35.0 Nonrheumatic aortic (valve) stenosis (principal); Z95.2 Presence of prosthetic heart valve; Z79.01 Long term (current) use of anticoagulants
CPT/HCPCS: 36415; 85610

== ENCOUNTER 2018-11-02 14:05 | Outpatient (CLI) | payer MEDICARE, SELFPAY ==
[2018-11-02 16:17] LABS: INR 1.9 (0.9-1.1); Prothrombin Time 19.4 sec (9.3-11.0)
== END 2018-11-02 14:25 ==
PROVIDERS: PCP Family Medicine; Visit Provider Family Medicine
DX: I35.0 Nonrheumatic aortic (valve) stenosis (principal); Z95.2 Presence of prosthetic heart valve; Z79.01 Long term (current) use of anticoagulants
CPT/HCPCS: 36415; 85610

== ENCOUNTER 2018-11-09 09:14 | Outpatient (CLI) | payer MEDICARE, SELFPAY ==
[2018-11-09 10:08] LABS: INR 2.5 (0.9-1.1); Prothrombin Time 25.2 sec (9.3-11.0)
== END 2018-11-09 09:34 ==
PROVIDERS: PCP Family Medicine; Visit Provider Family Medicine
DX: I35.0 Nonrheumatic aortic (valve) stenosis (principal); Z95.2 Presence of prosthetic heart valve; Z79.01 Long term (current) use of anticoagulants
CPT/HCPCS: 36415; 85610

== ENCOUNTER 2018-11-23 07:27 | Outpatient (CLI) | payer MEDICARE, SELFPAY ==
[2018-11-23 08:04] LABS: INR 3.3 (0.9-1.1); Prothrombin Time 33.8 sec (9.3-11.0)
== END 2018-11-23 07:47 ==
PROVIDERS: PCP Family Medicine; Visit Provider Family Medicine
DX: I35.0 Nonrheumatic aortic (valve) stenosis (principal); Z79.01 Long term (current) use of anticoagulants; Z95.2 Presence of prosthetic heart valve
CPT/HCPCS: 36415; 80061; 83721; 85610

== ENCOUNTER 2018-12-27 13:19 | Outpatient (CLI) | payer MEDICARE, SELFPAY ==
[2018-12-27 14:19] LABS: Prothrombin Time 25.7 sec (9.3-11.0)
[2018-12-27 14:32] LABS: INR 2.5 (0.9-1.1)
== END 2018-12-27 13:39 ==
PROVIDERS: PCP Family Medicine; Visit Provider Family Medicine
DX: I35.0 Nonrheumatic aortic (valve) stenosis (principal); Z95.2 Presence of prosthetic heart valve; Z79.01 Long term (current) use of anticoagulants
CPT/HCPCS: 36415; 85610

== ENCOUNTER 2019-01-27 08:35 | Outpatient (CLI) | payer MEDICARE, SELFPAY ==
[2019-01-27 09:11] LABS: INR 3.1 (0.9-1.1); Prothrombin Time 30.9 sec (9.3-11.0)
== END 2019-01-27 08:55 ==
PROVIDERS: PCP Family Medicine; Visit Provider Family Medicine
DX: I35.0 Nonrheumatic aortic (valve) stenosis (principal); Z95.2 Presence of prosthetic heart valve; Z79.01 Long term (current) use of anticoagulants
CPT/HCPCS: 36415; 85610

== ENCOUNTER 2019-02-25 12:57 | Outpatient (CLI) | payer MEDICARE, SELFPAY ==
[2019-02-25 13:45] LABS: INR 3.1 (0.9-1.1); Prothrombin Time 31.4 sec (9.3-11.0)
== END 2019-02-25 13:17 ==
PROVIDERS: PCP Family Medicine; Visit Provider Family Medicine
DX: I35.0 Nonrheumatic aortic (valve) stenosis (principal); Z95.2 Presence of prosthetic heart valve; Z79.01 Long term (current) use of anticoagulants
CPT/HCPCS: 36415; 85610

== ENCOUNTER 2019-03-28 12:42 | Outpatient (CLI) | payer MEDICARE, SELFPAY ==
[2019-03-28 14:03] LABS: INR 2.9 (0.9-1.1)
== END 2019-03-28 13:02 ==
PROVIDERS: PCP Family Medicine; Visit Provider Family Medicine
DX: I35.0 Nonrheumatic aortic (valve) stenosis (principal); Z95.2 Presence of prosthetic heart valve; Z79.01 Long term (current) use of anticoagulants
CPT/HCPCS: 36415; 80053; 80061; 85027; 83036; 85610

== ENCOUNTER 2019-05-06 10:20 | Outpatient (CLI) | payer MEDICARE, SELFPAY ==
[2019-05-06 10:46] LABS: HCT 38.1 % (36.0-46.0); HGB 11.6 g/dL (12.0-15.5); Mean Corp. HGB Concentration 30.4 g/dL (32.0-36.0); Mean Corpuscular Volume 75.6 fL (80-95); Mean Platelet Volume 9.3 fL (8.0-11.0); Platelet Count 324 x1000/uL (130-400); RBC 5.04 m/cumm (4.00-5.20); RBC Distribution Width 18.1 % (11.7-14.6)
[2019-05-06 10:55] LABS: INR 3.4 (0.9-1.1); Prothrombin Time 32.7 sec (9.3-11.0)
[2019-05-06 11:40] LABS: ALT 38 U/L (14-59); AST 26 U/L (15-37); Albumin 3.7 g/dL (3.4-5.0); Alkaline Phosphatase 96 U/L (46-116); Anion Gap 10.5 mmol/L (3-11); BUN 17 mg/dL (7-18); Bilirubin, Total 0.4 mg/dL (0.2-1.0); CO2 25.5 mmol/L (21.0-32.0); CREATININE 0.86 mg/dL (0.55-1.02); Calculated LDL 126 mg/dL; Chloride 107 mmol/L (98-107); Cholesterol 206 mg/dL (50-200); Glucose 108 mg/dL (70-100); HDL Cholesterol 43 mg/dL (40-60); Potassium 3.6 mmol/L (3.5-5.1); Sodium 143 mmol/L (136-145); Total Protein 6.5 g/dL (6.4-8.2); Triglyceride 186 mg/dL (30-150)
== END 2019-05-06 10:40 ==
PROVIDERS: PCP Family Medicine; Visit Provider Family Medicine
DX: E78.5 Hyperlipidemia, unspecified (principal); I10 Essential (primary) hypertension; R73.09 Other abnormal glucose; Z79.01 Long term (current) use of anticoagulants; Z95.2 Presence of prosthetic heart valve
CPT/HCPCS: 36415; 80053; 80061; 85027; 83036; 85014; 85018; 85610

== ENCOUNTER 2019-05-23 15:17 | Outpatient (CLI) | payer MEDICARE, SELFPAY ==
--- NOTE | 2019-05-23 15:43 | DI.RAD_ITS ---
EXAM: XR CERVICAL SP COMP W FLEX/EXT INDICATION: neck pain and left numbness M54.2 CERVICALGIA. COMPARISON: No exams were available for comparison TECHNIQUE: 2D digital imaging was performed. FINDINGS: The odontoid is intact. The lateral masses are well aligned. There is normal alignment of the cervi tisha spine. Mild disc space narrowing is seen at C5-6 and C6-C7. Small endplate osteophytes are seen at C6-C7. There are degenerative changes seen of the facet joints throughout the cervical spine. T here is mild narrowing of the left neural foramen at C3-C4. No significant subluxation is seen with flexion or extension. There are no acute fractures or subluxations. The prevertebral soft tissues a re unremarkable. IMPRESSION: Multilevel degenerative changes in the cervical spine.
== END 2019-05-23 15:37 ==
PROVIDERS: PCP Family Medicine; Visit Provider Family Medicine
DX: M54.2 Cervicalgia (principal); R20.0 Anesthesia of skin; M50.322 Other cervical disc degeneration at C5-C6 level; M50.323 Other cervical disc degeneration at C6-C7 level; M47.812 Spondylosis without myelopathy or radiculopathy, cervical region
CPT/HCPCS: 72052

== ENCOUNTER 2019-05-23 22:46 | Emergency (ER) | payer MEDICARE, SELFPAY ==
[2019-05-23] VITALS (13 sets, daily range): BP systolic 150–195; BP diastolic 71–95; PULSE 114–135; RESP 12–19; TEMP 36.9; O2SAT 94–98
--- NOTE | 2019-05-23 00:08 | DI.CT_ITS ---
EXAM: CT BRAIN NECK CTA CLINICAL HISTORY: headache, hypertensive TECHNIQUE: Imaging Protocol: Axial CT angiography was performed with multi-slice acquisition and mu lti-planar and/or 3D reconstructions. CONTRAST MATERIAL: Intravenous: Omnipaque 350 Contrast volume:85 mL contrast route:IV - Oral: No COMPARISON: No previous for comparison. FINDINGS: CT brain: The ventricles and sulci are consistent with the patient's age. No acute intracranial hemorrhage is present. Areas of decreased attenuation are seen in the white matter most consistent with small vess el ischemic disease. There is no acute midline shift or mass effect. The visualized paranasal sinus es are clear as are the mastoid air cells. The calvarium is intact. Carotid Arteries: Petrous: Normal. No occlusion, aneurysm or significant stenosis. Cavernous: Normal. No occlusion, aneurysm or significant stenosis. Cerebral: Normal. No occlusion, aneurysm or significant stenosis. Middle Cerebral Arteries: Right: No aneurysm, occlusion or significant stenosis. Left: No aneurysm, occlusion or significant stenosis. Anterior Cerebral Arteries: Right: No aneurysm, occlusion or significant stenosis. Left: No aneurysm, occlusion or significant stenosis. Posterior cerebral arteries: Right: No aneurysm, occlusion or significant stenosis. Left: No aneurysm, occlusion or significant stenosis. Vertebral Arteries: Right: No aneurysm or significant stenosis. Left: No aneurysm or significant stenosis. Basilar Artery: No aneurysm or significant stenosis. CT angiography of the neck: Common carotid arteries: Right: No aneurysm, occlusion or significant stenosis. Left: No aneurysm, occlusion or significant stenosis. External carotid arteries: Right: No occlusion or significant stenosis. Left: No occlusion or significant stenosis. Internal carotid arteries: Right: The extracranial segment shows no evidence of aneurysm, dissection, occlusion or significant s tenosis. Left: The extracranial segment shows no evidence of aneurysm, dissection, occlusion or significant st enosis. Vertebral arteries: Right: No evidence of occlusion, dissection or significant stenosis. Left: No evidence of occlusion, dissection or significant stenosis. The ascending thoracic aorta diameter is 4.4 centimeters. The lung apices are clear. IMPRESSION: 1. No acute intracranial process. 2. No acute arterial findings. 3. Ectasia of the ascending thoracic aorta at 4.4 centimeters. DATA REPOSITORY: All CT scans at this facility are submitted to the National Radiology Data Registry (NRDR) Dose Index Registry (DIR) with the [employer] (A[employer]). RADIATION OPTIMIZATION: All CT scans at this facility use at least one of these dose optimization te chniques: automated exposure control; mA and/or kV adjustment per patient size (includes targeted exa ms where dose is matched to clinical indication); or iterative reconstruction.
--- NOTE | 2019-05-23 00:14 | DI.RAD_ITS ---
EXAM: XR CHEST 2V PA LATERAL INDICATION: hypertension. COMPARISON: CHEST 2 VIEWS PA,LAT from 10/12/2009 TECHNIQUE: 2D digital imaging was performed. FINDINGS: The heart size and pulmonary vasculature are within normal limits. There are findings of a prior aor tic valve replacement. Sternal wires are in place. The lungs are clear. No effusion or pneumothora x is identified. There is an old L4 compression fracture deformity. Degenerative changes are seen i n the spine. IMPRESSION: No acute pulmonary process.
--- NOTE | 2019-05-23 23:04 | ED.GENADUL_ITS ---
Discharge Plan Disposition Patient Disposition: HOME Condition: Good Discharge Details Chief Complaint: Headache Clinical Impression: Neck pain Primary Care Provider: Radhika Irving ED Provider: Elvis Torres [place] Meds and New Rx's Prescriptions: Continued prednisone 20 mg tablet See Rx Instructions PO DAILY Qty: 11 RF: 0 omeprazole 20 mg capsule,delayed release(DR/EC) 20 mg PO DAILY Qty: 90 RF: 3 warfarin 2.5 mg tablet 5 mg PO DAILY Qty: 180 RF: 3 atorvastatin 40 mg tablet 40 mg PO HS Qty: 90 RF: 3 fluticasone propionate [Flonase Allergy Relief] 50 mcg/actuation spray,suspension 1 spray NS HS PRNRF: 0 Discontinued cyclobenzaprine 5 mg tablet 5 mg PO TID PRN (Reason: muscle spasm) Qty: 30 RF: 0 Discharge Instructions Additional Instructions: Laboratory studies and imaging tonight were okay. Check your blood pressures periodically at home. Contact primary care for follow-up. Discuss whether carotid ultrasound is still needed or not. Return to ED for new or worsening headache/neck pain, mental status change, neurologic change, chest pain or shortness of breath. Referrals: Radhika Irving MD, [place] [Primary Care Provider] - Medical Decision Making <Manav White DO - Last Filed: 05/23/19 23:47> This is a pleasant 68-year-old female with a past medical history of aortic valve replacement on chronic Coumadin, who has had headaches for the last year. Interestingly her headaches have resolved over the last few days, however she has noticed a notable increase in her blood pressure in conjunction with elevated heart rate and a whooshing sensation in her ears. She saw her PCP earlier today and at that time it was felt that perhaps the blood pressure may be secondary to anxiety, and she is instructed to monitor very closely and follow-up shortly. Unfortunately throughout the evening tonight her blood pressure continued, heart rate climbed, and her symptoms worsen. Right now she has no chest pain, headache, vision changes or neurologic deficit. Her neuro exam is unremarkable. The patient denies any headache red flags of worst headache of life, thunderclap headache, neck pain, fever, chills, concerning family history of polycystic kidney disease, Marfan syndrome, Nataliia-Danlos syndrome, abdominal aortic aneurysm, aortic dissection, or intracranial aneurysm. Differential is broad, anxiety is certainly on the differential but notably less likely, hypertensive urgency with potential for hypertensive emergency is on the differential. We will start with 10 of labetalol, gently hydrate, evaluate with imaging of the head neck, monitor closely and reassess. Case will be signed out to my colleague Dr. Torres for follow-up for imaging, labs, reassessment. EKG 23: 07 Rate 124, intervals normal, sinus tachycardia, no significant ST elevations or depressions, T wave inversions, Q waves noted in lead III and aVF. No evidence of STEMI. Unchanged on EKG from 05/16/2018 <Elvis Torres MD - Last Filed: 05/24/19 01:36> Patient signed out to me pending laboratory and imaging results. She had on presentation elevated heart rate blood pressure and was ordered for labetalol. This was never given as with simple time and calming down both heart rate and blood pressure came down. Laboratory studies are unremarkable. INR is 3.9, but because she has an aortic valve she is supposed to be between 3 and 4. CTA of head and neck shows no significant stenosis or pathology of the arteries. No other significant pathology other than ectatic aorta noted. I discussed findings with patient and . Patient's blood pressure remains somewhat elevated systolically but would not treat that. We will have her follow-up with primary care and check blood pressures periodically at home. Probably does not need carotid ultrasound at this point but will have patient check with Dr. Velarde 10. Return to ED for new or worsening headache, neurologic change, mental status change, chest pain, shortness of breath. Lab Data Lab results reviewed: Yes I reviewed the patient's lab results. HPI <Manav White DO - Last Filed: 05/23/19 23:47> General Date/Time Provider Initiated Documentation: 05/23/19 22:47 . HPI Narrative: This is a 68-year-old female with past medical history of high cholesterol, aortic valve replacement on chronic anticoagulation Coumadin, as well as chronic headaches since last July who presents today for evaluation of of headache, notable hypertension, and feelings of anxiety. Patient states that since July she has had mild intermittent headaches. She has been seen reassessed by both neurology and her PCP multiple times, her headaches have been notably resolving however over the last 24 to 48 hours she has noticed a significant increase in her blood pressure recently, she is also noticed an associated whooshing sensation that she hears in both of her ears. She has no headache associated with this. No thunderclap headache, no feelings of pressure in her head. When she saw her primary care provider earlier today her blood pressure was in high 180s to 190 systolic, however this was attributed to stress and anxiety. She is not on any antihypertensive medications. She was sent home, recommended for close follow-up and continued monitoring. Throughout the evening the whooshing sensation is worsened, her blood pressure is continued to climb, and she now continuing to feel both anxious, hypertensive and she noticed that her heart rate was greater than 100. She came to the ER for further evaluation. Currently she denies any chest tightness, chest heaviness, bandlike sensation, arm neck shoulder or head pain. She denies any visual changes, she denies any numbness tingling or weakness. She has no other complaints at this time. No other modifying factors. Related Data Home Medications Medication Instructions Recorded Confirmed omeprazole 20 mg capsule,delayed 20 mg PO DAILY #90 cap 11/16/18 05/23/19 release warfarin 2.5 mg tablet 5 mg PO DAILY #180 tab 11/16/18 05/23/19 atorvastatin 40 mg tablet 40 mg PO HS #90 tab 01/27/19 05/23/19 fluticasone propionate 50 1 spray NS HS PRN 03/01/19 05/23/19 mcg/actuation nasal spray,suspension prednisone 20 mg tablet See Rx Instructions PO DAILY #11 05/23/19 05/23/19 tab Previous Rx's Medication Instructions Recorded omeprazole 20 mg capsule,delayed 20 mg PO DAILY #90 cap 11/16/18 release warfarin 2.5 mg tablet 5 mg PO DAILY #180 tab 11/16/18 atorvastatin 40 mg tablet 40 mg PO HS #90 tab 01/27/19 prednisone 20 mg tablet See Rx Instructions PO DAILY #11 05/23/19 tab Allergies Allergy/AdvReac Type Severity Reaction Status Date / Time sulfamethoxazole Allergy Severe chills,gillian Verified 05/23/19 22:53 [From Bactrim] es,bumps trimethoprim [From Bactrim] Allergy Severe chills,gillian Verified 05/23/19 22:53 es,bumps pollen extracts Allergy Intermediate Verified 05/23/19 22:53 General Stated Complaint: Headache CHAD: 3 Review of Systems <Manav White DO - Last Filed: 05/23/19 23:47> All systems reviewed & are unremarkable except as noted in HPI and below PFSH <Manav White DO - Last Filed: 05/23/19 23:47> Social History (Updated 05/19/18 @ 07:21 by Leelee Morris) Smoking/Tobacco Use Status: Never Alcohol Intake: never Drug use: Never Substance use type: does not use Household members: spouse Pets and animals: No Duration: 30-45 minutes/day Frequency: 3-4 times per week Anai/Sabianist: Gnosticism Special anai needs: No Do you feel safe at home: Yes Do you feel safe in your relationship?: Yes Exam <Manav White DO - Last Filed: 05/23/19 23:47> Narrative Exam Narrative: 1.Const: Well-nourished, Well-developed, appearing stated age 2.Eyes: PERRL, no conjunctival injection, and symmetrical lids. 3.ENT: Atraumatic external nose and ears. Moist MM. Neck: Symmetric, trachea midline, No thyromegaly. Patient demonstrates good movement of cervical neck. There is no nuchal rigidity, no nuchal tenderness. Patient is able to flex the neck without any difficulty or significant pain. Negative Kernig's and Brudzinski sign. 4.CVS: +S1/S2, No murmurs or gallops. Peripheral pulses 2+ and equal in all extremities. Brisk capillary refill in all extremities. 5.RESP: Unlabored respiratory effort. Clear to auscultation bilaterally. No wheezes rales or rhonchi 6.GI: Soft, Nontender/Nondistended, No hepatosplenomegaly. No guarding or rebound. 7.MSK: Normocephalic/Atraumatic, Extremities w/o deformity or ttp No cyanosis or clubbing, Normal movement of all extremities 8.Skin: Warm, Dry. No rashes or lesions. 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 Sensation grossly intact, no focal neurologic deficits. All 6 cardinal planes of vision are fully intact. No evidence of rotatory or vertical nystagmus. The patient demonstrated a normal cykwiu-xdut-umyrtj, good dexterity. There was no evidence of dysdiadochokinesia. Patient was able to ambulate without difficulty. There was no wide-based gait. Romberg testing was normal. Udtj-rg-ebsp testing was normal. Sensation was intact bilaterally as well as muscle strength bilaterally for all extremities. Patient was able to verbalize butter cup with no slurring, or miss pronunciation. 10.Psych: (AAO) x3. Appropriate mood and affect Course <Manav White DO - Last Filed: 05/23/19 23:47> Vital Signs Vital signs: Vital Signs Temperature 36.9 C 05/23/19 22:49 Pulse 135 H 05/23/19 22:49 Respiratory Rate 16 05/23/19 22:49 Blood Pressure 195/95 H 05/23/19 22:49 Pulse Oximetry 98 05/23/19 22:49 Temperature 36.9 C 05/23/19 22:49 Temperature Source Skin 05/23/19 22:49 Pulse 135 H 05/23/19 22:49 Respiratory Rate 16 05/23/19 22:49 Respiratory Effort 05/23/19 22:55 Blood Pressure 195/95 H 05/23/19 22:49 Blood Pressure Position Sitting 05/23/19 22:49 Pulse Oximetry 98 05/23/19 22:49 Oxygen Delivery Method Room Air 05/23/19 22:49 Oxygen Flow Rate 0 05/23/19 22:49 Pain Level 9 05/23/19 22:56 Sign Out <Manav White DO - Last Filed: 05/23/19 23:47> Sign Out Data: Sign Out Comment: Headache, hypertension, both the heart rate and blood pressure seem to be resolving on their own without blood pressure medications. Reevaluation reassessment after imaging and lab return. Last updated by Manav White DO at 05/23/19 23:50
[2019-05-23] MEDS: Normal Saline 1,000 ML 1000 ML IV (23:19)
--- NOTE | 2019-05-23 23:21 | NUR.NOTE ---
Labetolol not admin and production underwriter notes BP decreased to 150/78 and HR [address] White notified and instructed production underwriter to hold Labatelol and admin IV NS now. Orders implemented without incident, pt updated on POC with verbal understanding. Pt states headache has basically resovled but now I have neck pain/burning 8/10. advised Will monitor. Nursing Note:
[2019-05-23 23:24] LABS: Abs Immature Grans 0.01 k/cumm (0.0-0.09); Absolute Basophil Count 0.01 k/cumm (0.0-0.2); Absolute Lymphocyte Count 0.53 k/cumm (1.2-3.4); Absolute Monocyte Count 0.07 k/cumm (0.11-0.7); Absolute Neutrophil Count 6.61 k/cumm (1.2-6.7); Basophils % 0.1; HCT 38.7 % (36.0-46.0); Immature Grans % 0.1; Lymphocytes % 7.3; Mean Corpuscular Hemoglobin 23.2 pg (27.0-33.0); Mean Corpuscular Volume 74.9 fL (80-95); Mean Platelet Volume 9.3 fL (8.0-11.0); Neutrophils % 91.5; Platelet Count 359 x1000/uL (130-400); RBC 5.17 m/cumm (4.00-5.20); RBC Distribution Width 18.4 % (11.7-14.6); White Blood Cell Count 7.23 k/cumm (4.4-10.8)
[2019-05-23 23:36] LABS: Diff Comment RBC Morph Reviewed; Microcytosis 2+
[2019-05-23 23:44] LABS: NT-proBNP 115 pg/mL (<300); PTT Activated 40.9 sec (21.0-31.4); TSH (W/Ref FT4) 1.15 uIU/mL (0.36-3.74)
[2019-05-23 23:47] LABS: Troponin I < 0.05 ng/Ml (<0.06)
[2019-05-23] MEDS: Acetaminophen 500 MG TAB 1000 MG PO (23:49)
[2019-05-23 23:56] LABS: ALT 36 U/L (14-59); AST 28 U/L (15-37); Albumin 4.2 g/dL (3.4-5.0); Alkaline Phosphatase 112 U/L (46-116); Anion Gap 12.1 mmol/L (3-11); BUN 16 mg/dL (7-18); Bilirubin, Total 0.3 mg/dL (0.2-1.0); CO2 22.9 mmol/L (21.0-32.0); CREATININE 1.03 mg/dL (0.55-1.02); Calcium 9.3 mg/dL (8.5-10.1); Chloride 105 mmol/L (98-107); Estimated GFR 52.98 (mL/min/1.73m2); Glucose 273 mg/dL (74-106); INR 3.9 (0.9-1.1); Potassium 3.8 mmol/L (3.5-5.1); Sodium 140 mmol/L (136-145); Total Protein 7.8 g/dL (6.4-8.2)
[2019-05-24] VITALS: BP 174/81; PULSE 118; PULSE 121; RESP 20; O2SAT 98
[2019-05-24 00:01] VITALS: PULSE 119; RESP 16; O2SAT 98
[2019-05-24] MEDS: Lidocaine 5% Patch 1 PATCH TP (00:03)
[2019-05-24 00:05] VITALS: BP 163/83; PULSE 119; PULSE 125; RESP 22; O2SAT 97
--- NOTE | 2019-05-24 00:10 | NUR.NOTE ---
Assumed care of pt. Report from VEGA Goldberg. Pt currently in CT.
--- NOTE | 2019-05-24 00:48 | DI.VRAD_ITS ---
PROCEDURE INFORMATION: Exam: XR Chest, 2 Views Exam date and time: 05/23/2019 12:42 AM Age: 68 years old Clinical history: Prior surgery; Surgery date: 6+ months; Surgery type: Valve replacement 23 years ago congenital; Patient HX: Hypertension, neck pain, headaches TECHNIQUE: Imaging protocol: XR of the chest Views: 2 views. COMPARISON: No relevant prior studies available. FINDINGS: Lungs: Unremarkable. No consolidation. Pleural space: Unremarkable. No pleural effusion. No pneumothorax. Heart/Mediastinum: Unremarkable. No cardiomegaly. Bones/joints: Median sternotomy wires noted. IMPRESSION: No acute finding. Dictated and Authenticated by: Jerome Joseph MD. Ordering:GAB Em MD
--- NOTE | 2019-05-24 00:57 | DI.VRAD_ITS ---
PROCEDURE INFORMATION: Exam: CT Angiography Head With Contrast Exam date and time: 05/23/2019 12:25 AM Age: 68 years old Clinical history: Pain; Prior surgery; Surgery date: 6+ months; Surgery type: Heart valve 23 years ago; Patient HX: Hypertension, throbbing in R side of neck, headaches, tired TECHNIQUE: Imaging protocol: Computed tomography angiography of the head with intravenous contrast. 3D rendering: MIP reconstructed images were created and reviewed. Radiation optimization: All CT scans at this facility use at least one of these dose optimization techniques: automated exposure control; mA and/or kV adjustment per patient size (includes targeted exams where dose is matched to clinical indication); or iterative reconstruction. Contrast material: OMNIPAQUE 350; Contrast volume: 85 ml; Contrast route: IV RAC; COMPARISON: No relevant prior studies available. FINDINGS: Right internal carotid artery: Unremarkable. Intracranial segment is patent with no significant stenosis. No aneurysm. Right anterior cerebral artery: Unremarkable. No occlusion or significant stenosis. No aneurysm. Right middle cerebral artery: Unremarkable. No occlusion or significant stenosis. No aneurysm. Right posterior cerebral artery: Unremarkable. No occlusion or significant stenosis. No aneurysm. Right vertebral artery: Unremarkable. No occlusion or significant stenosis. No aneurysm. Left internal carotid artery: Unremarkable. Intracranial segment is patent with no significant stenosis. No aneurysm. Left anterior cerebral artery: Unremarkable. No occlusion or significant stenosis. No aneurysm. Left middle cerebral artery: Unremarkable. No occlusion or significant stenosis. No aneurysm. Left posterior cerebral artery: Unremarkable. No occlusion or significant stenosis. No aneurysm. Left vertebral artery: Unremarkable. No occlusion or significant stenosis. No aneurysm. Basilar artery: Unremarkable. No occlusion or significant stenosis. No aneurysm. IMPRESSION: No acute findings. PROCEDURE INFORMATION: Exam: CT Angiography Neck With Contrast Exam date and time: 05/23/2019 12:25 AM Age: 68 years old Clinical history: Pain; Prior surgery; Surgery date: 6+ months; Surgery type: Heart valve 23 years ago; Patient HX: Hypertension, throbbing in R side of neck, headaches, tired TECHNIQUE: Imaging protocol: Computed tomography angiography of the neck with intravenous contrast. 3D rendering: MIP reconstructed images were created and reviewed. Radiation optimization: All CT scans at this facility use at least one of these dose optimization techniques: automated exposure control; mA and/or kV adjustment per patient size (includes targeted exams where dose is matched to clinical indication); or iterative reconstruction. Contrast material: OMNIPAQUE 350; Contrast volume: 85 ml; Contrast route: IV RAC; COMPARISON: No relevant prior studies available. FINDINGS: VASCULATURE: Right common carotid artery: Unremarkable. No significant stenosis. No dissection or occlusion. Right internal carotid artery: Unremarkable. Extracranial segment is patent with no significant stenosis. No dissection or occlusion. Right external carotid artery: No occlusion or significant stenosis. Right vertebral artery: Unremarkable. No significant stenosis. No dissection or occlusion. Left common carotid artery: Unremarkable. No significant stenosis. No dissection or occlusion. Left internal carotid artery: Unremarkable. Extracranial segment is patent with no significant stenosis. No dissection or occlusion. Left external carotid artery: No occlusion or significant stenosis. Left vertebral artery: Unremarkable. No significant stenosis. No dissection or occlusion. Aorta: Ascending thoracic aorta diameter of 44 mm. NECK: Bones/joints: Unremarkable. Soft tissues: No significant soft tissue swelling. IMPRESSION: No acute findings. Ascending thoracic aorta is mildly ectatic at 44 mm. COMMENT: Reference per NASCET criteria for degree of stenosis: Mild: less than 50% stenosis. Moderate: 50-69% stenosis. Severe: 70-94% stenosis. Near occlusion: 95-99% stenosis. Dictated and Authenticated by: Connor Modi MD. Ordering:GAB Em MD
[2019-05-24 01:29] VITALS: BP 157/78; PULSE 114; RESP 16; O2SAT 96
[2019-05-24 01:33] VITALS: PULSE 108
== END 2019-05-24 01:45 | disposition home or self-care (01) ==
PROVIDERS: Student in an Organized Health Care Education/Training Program; Emergency Provider Emergency Medicine; PCP Family Medicine
DX: R51 Headache (principal); M54.2 Cervicalgia; I10 Essential (primary) hypertension; Z95.2 Presence of prosthetic heart valve; Z79.01 Long term (current) use of anticoagulants
CPT/HCPCS: 36415; 70496; 70498; 80053; 93005; 96360; 96361; 99285; 71046; 72052; 83880; 84443; 84484; 85025; 85610; 85730; 93010

== ENCOUNTER 2019-06-28 12:21 | Outpatient (CLI) | payer MEDICARE, SELFPAY ==
[2019-06-28 12:43] LABS: HCT 38.3 % (36.0-46.0); HGB 11.8 g/dL (12.0-15.5)
[2019-06-28 13:20] LABS: Prothrombin Time 41.6 sec (9.3-11.0)
[2019-06-28 13:34] LABS: INR 4.3 (0.9-1.1)
== END 2019-06-28 12:41 ==
PROVIDERS: PCP Family Medicine; Visit Provider Family Medicine
DX: D64.9 Anemia, unspecified (principal); I35.8 Other nonrheumatic aortic valve disorders; Z79.01 Long term (current) use of anticoagulants; Z95.2 Presence of prosthetic heart valve
CPT/HCPCS: 36415; 85014; 85018; 85610

== ENCOUNTER 2019-07-12 11:47 | Outpatient (CLI) | payer MEDICARE, SELFPAY ==
[2019-07-12 12:39] LABS: INR 3.7 (0.9-1.1); Prothrombin Time 35.9 sec (9.3-11.0)
== END 2019-07-12 12:07 ==
PROVIDERS: PCP Family Medicine; Visit Provider Family Medicine
DX: I35.0 Nonrheumatic aortic (valve) stenosis (principal); Z95.2 Presence of prosthetic heart valve; Z79.01 Long term (current) use of anticoagulants
CPT/HCPCS: 36415; 85014; 85018; 85610

== ENCOUNTER 2019-07-18 01:34 | Outpatient (CLI) | payer MEDICARE, SELFPAY ==
--- NOTE | 2019-07-18 11:17 | DI.MAMMO_ITS ---
EXAM: MG MAMMO SCREENING CLINICAL HISTORY: screening, Z12.39. TECHNIQUE: Full field digital CC and MLO mammographic images were obtained with 3D tomosynthesis and utilizing computer aided detection (CAD). COMPARISON: 2010 to 2017 FINDINGS: Breast Density - Category A - Almost entirely fatty Masses/Architectural Distortion: None seen. Microcalcifications: No suspicious pleomorphic-type calcifications are seen. Skin Thickening/Nipple Retraction: None. Axilla: Unremarkable. IMPRESSION: 1. BI-RADS category 1, negative. No significant interval change with no specific features of maligna ncy noted. 2. Unless there is more urgent need, screening mammography is recommended, as per [place] [employer] guidelines. A negative radiographic report should not delay biopsy if a dominant or clinically suspicious mass is present. Up to ten percent of cancers are not identified on mammography. A negative report may reinforce clinical impression. Adenosis and dense breasts may obscure an underlying neoplasm. False positive reports average 6 to 10%. Patient will receive a letter notifying them of these results.
== END 2019-07-18 01:54 ==
PROVIDERS: PCP Family Medicine; Visit Provider Family Medicine
DX: Z12.31 Encounter for screening mammogram for malignant neoplasm of breast (principal)
CPT/HCPCS: 77063; 77067

== ENCOUNTER 2019-07-19 13:27 | Outpatient (CLI) | payer MEDICARE, SELFPAY ==
[2019-07-19 13:57] LABS: INR 3.4 (0.9-1.1); Prothrombin Time 33.4 sec (9.3-11.0)
== END 2019-07-19 13:47 ==
PROVIDERS: PCP Family Medicine; Visit Provider Family Medicine
DX: I35.0 Nonrheumatic aortic (valve) stenosis (principal); Z95.2 Presence of prosthetic heart valve; Z79.01 Long term (current) use of anticoagulants
CPT/HCPCS: 36415; 85610

== ENCOUNTER 2019-08-23 13:41 | Outpatient (CLI) | payer MEDICARE, SELFPAY ==
[2019-08-23 14:16] LABS: INR 3.8 (0.9-1.1); Prothrombin Time 37.3 sec (9.3-11.0)
== END 2019-08-23 14:01 ==
PROVIDERS: PCP Family Medicine; Visit Provider Family Medicine
DX: I35.0 Nonrheumatic aortic (valve) stenosis (principal); Z79.01 Long term (current) use of anticoagulants; Z95.2 Presence of prosthetic heart valve
CPT/HCPCS: 36415; 85610

== ENCOUNTER 2019-08-30 09:25 | Outpatient (CLI) | payer MEDICARE, SELFPAY ==
[2019-08-30 10:07] LABS: INR 2.6 (0.9-1.1); Prothrombin Time 25.4 sec (9.3-11.0)
== END 2019-08-30 09:45 ==
PROVIDERS: PCP Family Medicine; Visit Provider Family Medicine
DX: I35.0 Nonrheumatic aortic (valve) stenosis (principal); Z95.2 Presence of prosthetic heart valve; Z79.01 Long term (current) use of anticoagulants
CPT/HCPCS: 36415; 85610

== ENCOUNTER 2019-11-16 03:40 | Outpatient (CLI) | payer MEDICARE, SELFPAY ==
[2019-11-16 09:47] LABS: Prothrombin Time 47.1 sec (9.3-11.0)
[2019-11-16 10:06] LABS: INR 4.9 (0.9-1.1)
== END 2019-11-16 04:00 ==
PROVIDERS: PCP Family Medicine; Visit Provider Family Medicine
DX: Z79.01 Long term (current) use of anticoagulants (principal); Z95.2 Presence of prosthetic heart valve; I35.8 Other nonrheumatic aortic valve disorders
CPT/HCPCS: 36415; 85610

== ENCOUNTER 2019-11-21 03:06 | Outpatient (CLI) | payer MEDICARE, SELFPAY ==
[2019-11-21 12:32] LABS: INR 3.3 (0.9-1.1); Prothrombin Time 32.2 sec (9.3-11.0)
== END 2019-11-21 03:26 ==
PROVIDERS: PCP Family Medicine; Visit Provider Family Medicine
DX: Z79.01 Long term (current) use of anticoagulants (principal); Z95.2 Presence of prosthetic heart valve; I35.8 Other nonrheumatic aortic valve disorders
CPT/HCPCS: 36415; 85610

== ENCOUNTER 2019-11-29 04:14 | Outpatient (CLI) | payer MEDICARE, SELFPAY ==
[2019-11-29 13:59] LABS: Prothrombin Time 29.8 sec (9.3-11.0)
== END 2019-11-29 04:34 ==
PROVIDERS: PCP Family Medicine; Visit Provider Family Medicine
DX: I35.8 Other nonrheumatic aortic valve disorders (principal); Z79.01 Long term (current) use of anticoagulants
CPT/HCPCS: 36415; 85610

== ENCOUNTER 2019-12-13 01:16 | Outpatient (CLI) | payer MEDICARE, SELFPAY ==
[2019-12-13 08:57] LABS: INR 2.5 (0.9-1.1); Prothrombin Time 24.4 sec (9.3-11.0)
== END 2019-12-13 01:36 ==
PROVIDERS: PCP Family Medicine; Visit Provider Family Medicine
DX: Z79.01 Long term (current) use of anticoagulants (principal); Z95.4 Presence of other heart-valve replacement; I35.0 Nonrheumatic aortic (valve) stenosis
CPT/HCPCS: 36415; 85610

== ENCOUNTER 2020-01-12 01:00 | Outpatient (CLI) | payer MEDICARE, SELFPAY ==
[2020-01-12 09:24] LABS: INR 2.8 (0.9-1.1); Prothrombin Time 27.5 sec (9.3-11.0)
== END 2020-01-12 01:20 ==
PROVIDERS: PCP Family Medicine; Visit Provider Family Medicine
DX: Z79.01 Long term (current) use of anticoagulants (principal); D64.9 Anemia, unspecified
CPT/HCPCS: 36415; 85610

== ENCOUNTER 2020-02-13 02:41 | Outpatient (CLI) | payer MEDICARE, SELFPAY ==
[2020-02-13 08:54] LABS: INR 2.7 (0.9-1.1); Prothrombin Time 26.7 sec (9.3-11.0)
== END 2020-02-13 03:01 ==
PROVIDERS: PCP Family Medicine; Visit Provider Family Medicine
DX: Z79.01 Long term (current) use of anticoagulants (principal); I35.0 Nonrheumatic aortic (valve) stenosis; Z95.2 Presence of prosthetic heart valve
CPT/HCPCS: 36415; 85610

== ENCOUNTER 2020-03-15 04:47 | Outpatient (CLI) | payer MEDICARE, SELFPAY ==
[2020-03-15 11:45] LABS: INR 2.7 (0.9-1.1); Prothrombin Time 26.7 sec (9.3-11.0)
== END 2020-03-15 05:07 ==
PROVIDERS: PCP Family Medicine; Visit Provider Family Medicine
DX: Z79.01 Long term (current) use of anticoagulants (principal); Z95.2 Presence of prosthetic heart valve; I35.0 Nonrheumatic aortic (valve) stenosis
CPT/HCPCS: 36415; 85610

== ENCOUNTER 2020-05-08 01:59 | Outpatient (CLI) | payer MEDICARE, SELFPAY ==
[2020-05-08 12:00] LABS: INR 3.1 (0.9-1.1); Prothrombin Time 30.1 sec (9.3-11.0)
== END 2020-05-08 02:19 ==
PROVIDERS: PCP Family Medicine; Visit Provider Family Medicine
DX: Z79.01 Long term (current) use of anticoagulants (principal); D64.9 Anemia, unspecified
CPT/HCPCS: 36415; 85610

== ENCOUNTER 2020-06-12 02:05 | Outpatient (CLI) | payer MEDICARE, SELFPAY ==
[2020-06-12 12:13] LABS: HCT 38.1 % (36.0-46.0); HGB 12.6 g/dL (11.2-15.7); MCHC 33.1 % (32.0-36.0); MCV 84.7 fL (80-95); MPV 9.7 fL (8.0-11.0); Platelet Count 250 10^3/uL (130-400); RDW 15.7 % (11.7-14.6); RDW-SD 48.5 fL; WBC 5.74 10^3/uL (4.4-10.8)
[2020-06-12 12:33] LABS: Prothrombin Time 40.1 sec (9.3-11.0)
[2020-06-12 12:41] LABS: INR 4.1 (0.9-1.1)
[2020-06-12 12:55] LABS: Hemoglobin A1C 5.7 % (<5.7)
[2020-06-12 13:21] LABS: COMMENT (LAB VIEW ONLY) 236.36 mg/dL; Microalb ug/mg Crea 8.4 ug/mg Cr
[2020-06-12 13:24] LABS: ALT 36 U/L (14-59); AST 29 U/L (15-37); Albumin 3.8 g/dL (3.4-5.0); Alkaline Phosphatase 68 U/L (46-116); BUN 23 mg/dL (7-18); Bilirubin, Total 0.4 mg/dL (0.2-1.0); CREATININE 0.92 mg/dL (0.55-1.02); Calcium 8.8 mg/dL (8.5-10.1); Calculated LDL 103 mg/dL (<100); Chloride 106 mmol/L (98-107); Cholesterol 180 mg/dL (<200); Glucose 96 mg/dL (74-106); HDL Cholesterol 41 mg/dL (40-60); Potassium 3.5 mmol/L (3.5-5.1); Sodium 144 mmol/L (136-145); Total Protein 6.5 g/dL (6.4-8.2); Triglyceride 180 mg/dL (<150)
== END 2020-06-12 02:25 ==
PROVIDERS: PCP Family Medicine; Visit Provider Family Medicine
DX: I10 Essential (primary) hypertension (principal); E11.9 Type 2 diabetes mellitus without complications; I48.91 Unspecified atrial fibrillation; Z79.01 Long term (current) use of anticoagulants
CPT/HCPCS: 36415; 80053; 80061; 85027; 82043; 82570; 83036; 85014; 85018; 85610

== ENCOUNTER 2020-06-19 03:25 | Outpatient (CLI) | payer MEDICARE, SELFPAY ==
[2020-06-19 13:00] LABS: INR 3.3 (0.9-1.1); Prothrombin Time 31.8 sec (9.3-11.0)
== END 2020-06-19 03:45 ==
PROVIDERS: PCP Family Medicine; Visit Provider Family Medicine
DX: Z79.01 Long term (current) use of anticoagulants (principal)
CPT/HCPCS: 36415; 85610

== ENCOUNTER 2020-06-27 05:11 | Outpatient (CLI) | payer MEDICARE, SELFPAY ==
[2020-06-27 16:46] LABS: INR 2.4 (0.9-1.1); Prothrombin Time 23.3 sec (9.3-11.0)
== END 2020-06-27 05:31 ==
PROVIDERS: PCP Family Medicine; Visit Provider Family Medicine
DX: I35.8 Other nonrheumatic aortic valve disorders (principal); Z95.2 Presence of prosthetic heart valve; Z79.01 Long term (current) use of anticoagulants
CPT/HCPCS: 36415; 85610

== ENCOUNTER 2020-07-04 04:45 | Outpatient (CLI) | payer MEDICARE, SELFPAY ==
[2020-07-04 09:07] LABS: INR 3.2 (0.9-1.1); Prothrombin Time 30.8 sec (9.3-11.0)
== END 2020-07-04 05:05 ==
PROVIDERS: PCP Family Medicine; Visit Provider Family Medicine
DX: I35.8 Other nonrheumatic aortic valve disorders (principal); Z95.2 Presence of prosthetic heart valve; Z79.01 Long term (current) use of anticoagulants
CPT/HCPCS: 36415; 85610

== ENCOUNTER 2020-07-18 02:58 | Outpatient (CLI) | payer MEDICARE, SELFPAY ==
[2020-07-18 09:01] LABS: INR 3.2 (0.9-1.1); Prothrombin Time 30.9 sec (9.3-11.0)
== END 2020-07-18 03:18 ==
PROVIDERS: PCP Family Medicine; Visit Provider Family Medicine
DX: I35.8 Other nonrheumatic aortic valve disorders (principal); Z95.2 Presence of prosthetic heart valve; Z79.01 Long term (current) use of anticoagulants
CPT/HCPCS: 36415; 85610

== ENCOUNTER 2020-08-17 01:49 | Outpatient (CLI) | payer MEDICARE, SELFPAY ==
[2020-08-17 11:40] LABS: INR 3.1 (0.9-1.1); Prothrombin Time 30.3 sec (9.3-11.0)
== END 2020-08-17 01:50 | disposition home or self-care (01) ==
LOC: LBO 01:49
PROVIDERS: PCP Family Medicine; Visit Provider Family Medicine
DX: I35.8 Other nonrheumatic aortic valve disorders (principal); Z95.2 Presence of prosthetic heart valve; Z79.01 Long term (current) use of anticoagulants
CPT/HCPCS: 36415; 85610

== ENCOUNTER 2020-09-13 03:03 | Outpatient (CLI) | payer MEDICARE, SELFPAY ==
[2020-09-13 11:44] LABS: INR 2.6 (0.9-1.1); Prothrombin Time 25.7 sec (9.3-11.0)
== END 2020-09-13 03:04 | disposition home or self-care (01) ==
LOC: LBO 03:03
PROVIDERS: PCP Family Medicine; Visit Provider Family Medicine
DX: I35.8 Other nonrheumatic aortic valve disorders (principal); Z95.2 Presence of prosthetic heart valve; Z79.01 Long term (current) use of anticoagulants
CPT/HCPCS: 36415; 85610

== ENCOUNTER 2020-10-17 03:45 | Outpatient (CLI) | payer MEDICARE, SELFPAY ==
[2020-10-17 12:01] LABS: INR 3.1 (0.9-1.1)
== END 2020-10-17 03:46 | disposition home or self-care (01) ==
LOC: LBO 03:45
PROVIDERS: PCP Family Medicine; Visit Provider Family Medicine
DX: Z79.01 Long term (current) use of anticoagulants (principal); Z95.2 Presence of prosthetic heart valve; I35.8 Other nonrheumatic aortic valve disorders
CPT/HCPCS: 36415; 85610

== ENCOUNTER 2020-11-16 02:30 | Outpatient (CLI) | payer MEDICARE, SELFPAY ==
[2020-11-16 13:15] LABS: INR 3.2 (0.9-1.1); Prothrombin Time 31.2 sec (9.3-11.0)
== END 2020-11-16 02:31 | disposition home or self-care (01) ==
LOC: LBO 02:30
PROVIDERS: PCP Family Medicine; Visit Provider Family Medicine
DX: I35.8 Other nonrheumatic aortic valve disorders (principal); Z95.2 Presence of prosthetic heart valve; Z79.01 Long term (current) use of anticoagulants
CPT/HCPCS: 36415; 85610

== ENCOUNTER 2020-12-03 01:26 | Outpatient (CLI) | payer MEDICARE, SELFPAY ==
--- NOTE | 2020-12-03 08:15 | DI.MAMMO_ITS ---
Exam(s) MAMMO SCREENING EXAM: MAMMO SCREENING CLINICAL HISTORY: screening,Z12.39. TECHNIQUE: Bilateral full field digital CC and MLO mammographic images were obtained with 3D tomosyn thesis and utilizing computer aided detection (CAD). COMPARISON: Prior mammograms dating back to 2011, the most recent being June 2019. FINDINGS: There are no CAD designations There are no new spiculated masses nor malignant appearing microcalcification groups. Benign-appearing microcalcifications in the upper-outer quadrant of the right breast are again noted. There is no significant architectural distortion nor skin thickening-retraction. IMPRESSION: No radiographic evidence of malignancy. BI-RADS Category 1 - Negative Breast Density - Category B - Scattered areas of fibroglandular density Breast density Category C or D implies that the patient has dense breast tissue. Dense breast tissue can make it harder to find cancer on a mammogram. Dense breast tissue is also associated with an incr eased risk of breast cancer. This information about the result of the mammogram report was provided to the patient to raise their awareness. Use this report when you speak with the patient about their risks for breast cancer, which includes their family history. At that time, you may recommend additional screening tests (Ultrasoun d or MRI) as these tests may add significant information. A negative radiographic report should not delay biopsy if a dominant or clinically suspicious mass is present. Up to ten percent of cancers are not identified on mammography. A negative report may reinforce clinical impression. Adenosis and dense breasts may obscure an underlying neoplasm. False positive reports average 6 to 10%. Patient will receive a letter notifying them of these results.
== END 2020-12-03 01:46 ==
PROVIDERS: PCP Family Medicine; Visit Provider Family Medicine
DX: Z12.31 Encounter for screening mammogram for malignant neoplasm of breast (principal)
CPT/HCPCS: 77063; 77067

== ENCOUNTER 2020-12-21 10:46 | Outpatient (CLI) | payer MEDICARE, SELFPAY ==
[2020-12-21 13:42] LABS: INR 3.4 (0.9-1.1); Prothrombin Time 33.1 sec (9.3-11.0)
== END 2020-12-21 10:47 | disposition home or self-care (01) ==
LOC: LBO 10:51
PROVIDERS: PCP Family Medicine; Visit Provider Family Medicine
DX: I35.8 Other nonrheumatic aortic valve disorders; Z95.2 Presence of prosthetic heart valve; Z79.01 Long term (current) use of anticoagulants
CPT/HCPCS: 36415; 85610

== ENCOUNTER 2021-01-25 02:35 | Outpatient (CLI) | payer MEDICARE, SELFPAY ==
[2021-01-25 10:55] LABS: INR 2.7 (0.9-1.1); Prothrombin Time 26.3 sec (9.3-11.0)
== END 2021-01-25 02:36 | disposition home or self-care (01) ==
LOC: LBO 02:35
PROVIDERS: PCP Family Medicine; Visit Provider Family Medicine
DX: I35.8 Other nonrheumatic aortic valve disorders (principal); Z95.2 Presence of prosthetic heart valve; Z79.01 Long term (current) use of anticoagulants
CPT/HCPCS: 36415; 85610

== ENCOUNTER 2021-03-01 03:34 | Outpatient (CLI) | payer MEDICARE, SELFPAY ==
[2021-03-01 16:04] LABS: INR 3.3 (0.9-1.1)
== END 2021-03-01 03:35 | disposition home or self-care (01) ==
LOC: LBO 03:34
PROVIDERS: PCP Family Medicine; Visit Provider Family Medicine
DX: I35.8 Other nonrheumatic aortic valve disorders (principal); Z95.2 Presence of prosthetic heart valve; Z79.01 Long term (current) use of anticoagulants
CPT/HCPCS: 36415; 85610

== ENCOUNTER 2021-04-09 02:38 | Outpatient (CLI) | payer MEDICARE, SELFPAY ==
[2021-04-09 12:06] LABS: INR 2.8 (0.9-1.1); Prothrombin Time 27.4 sec (9.3-11.0)
== END 2021-04-09 02:39 | disposition home or self-care (01) ==
LOC: LBO 02:38
PROVIDERS: PCP Family Medicine; Visit Provider Family Medicine
DX: Z79.01 Long term (current) use of anticoagulants (principal); Z95.4 Presence of other heart-valve replacement
CPT/HCPCS: 36415; 85610

== ENCOUNTER 2021-05-13 03:28 | Outpatient (CLI) | payer MEDICARE, SELFPAY ==
[2021-05-13 10:34] LABS: INR 3.5 (0.9-1.1); Prothrombin Time 34.4 sec (9.3-11.0)
== END 2021-05-13 03:29 | disposition home or self-care (01) ==
LOC: LBO 03:28
PROVIDERS: PCP Family Medicine; Visit Provider Family Medicine
DX: Z79.01 Long term (current) use of anticoagulants (principal); Z95.4 Presence of other heart-valve replacement
CPT/HCPCS: 36415; 85610

== ENCOUNTER 2021-06-18 02:55 | Outpatient (CLI) | payer MEDICARE, SELFPAY ==
[2021-06-18 10:22] LABS: INR 3.1 (0.9-1.1); Prothrombin Time 29.9 sec (9.3-11.0)
== END 2021-06-18 02:56 | disposition home or self-care (01) ==
LOC: LBO 02:55
PROVIDERS: PCP Family Medicine; Visit Provider Family Medicine
DX: Z95.4 Presence of other heart-valve replacement; Z79.01 Long term (current) use of anticoagulants; I35.0 Nonrheumatic aortic (valve) stenosis
CPT/HCPCS: 36415; 85610

== ENCOUNTER 2021-07-09 12:08 | Outpatient (REF) | payer MEDICARE, SELFPAY ==
--- NOTE | 2021-07-09 09:30 | SKI_PTH ---
PATIENT: Maryanne Rey LOC: N U#:[id number] AGE/SX: 70/F ROOM: RE07/09/[address]: Radhika Irving MD, DC : 1950 BED: DIS: 07/09/2021 SPEC #: [id number] RECD: 07/09/21 12:34 STATUS: DANYEL REQ #: [id number] JONATHON: 07/09/21 09:[address]: Radhika Irving DEPT: Surgical Specimen RECD BY: Leanne Sahu Tissues: 1 - SKIN BIOPSY(SHAVE/PUNCH) Procedures: SKIN LEVEL 4 Comments: [id number]
== END 2021-07-09 12:09 | disposition home or self-care (01) ==
LOC: LBN 12:08
PROVIDERS: PCP Family Medicine; Visit Provider Family Medicine
DX: L82.1 Other seborrheic keratosis (principal)
CPT/HCPCS: 88305

== ENCOUNTER 2021-07-19 04:34 | Outpatient (CLI) | payer MEDICARE, SELFPAY ==
[2021-07-19 10:40] LABS: Prothrombin Time 29.1 sec (9.3-11.0)
[2021-07-19 11:13] LABS: ALT 44 U/L (14-59); AST 33 U/L (15-37); Albumin 3.8 g/dL (3.4-5.0); Alkaline Phosphatase 86 U/L (46-116); Anion Gap 8.1 mmol/L (3-11); BUN 18 mg/dL (7-18); Bilirubin, Total 0.4 mg/dL (0.2-1.0); CO2 29.9 mmol/L (21.0-32.0); CREATININE 0.8 mg/dL (0.55-1.02); Calcium 9.1 mg/dL (8.5-10.1); Calculated LDL 134 mg/dL (<100); Chloride 106 mmol/L (98-107); Cholesterol 213 mg/dL (<200); Glucose 117 mg/dL (74-106); HDL Cholesterol 42 mg/dL (40-60); Potassium 3.7 mmol/L (3.5-5.1); Sodium 144 mmol/L (136-145); Total Protein 6.8 g/dL (6.4-8.2); Triglyceride 185 mg/dL (<150)
[2021-07-19 11:41] LABS: COMMENT (LAB VIEW ONLY) 256.66 mg/dL; Microalb ug/mg Crea 9.9 ug/mg Cr
== END 2021-07-19 04:35 | disposition home or self-care (01) ==
LOC: LBO 04:34
PROVIDERS: PCP Family Medicine; Visit Provider Family Medicine
DX: E11.9 Type 2 diabetes mellitus without complications (principal); E78.5 Hyperlipidemia, unspecified; I10 Essential (primary) hypertension; Z79.01 Long term (current) use of anticoagulants; Z95.4 Presence of other heart-valve replacement
CPT/HCPCS: 36415; 80053; 80061; 82043; 82570; 83036; 85610

== ENCOUNTER 2021-08-16 04:26 | Outpatient (CLI) | payer MEDICARE, SELFPAY ==
[2021-08-16 15:20] LABS: INR 3.4 (0.9-1.1); Prothrombin Time 33.3 sec (9.3-11.0)
== END 2021-08-16 04:27 | disposition home or self-care (01) ==
LOC: LBO 04:26
PROVIDERS: PCP Family Medicine; Visit Provider Family Medicine
DX: Z79.01 Long term (current) use of anticoagulants (principal)
CPT/HCPCS: 36415; 85610

== ENCOUNTER 2021-09-20 03:00 | Outpatient (CLI) | payer MEDICARE, SELFPAY ==
[2021-09-20 12:39] LABS: INR 2.9 (0.9-1.1); Prothrombin Time 28.3 sec (9.3-11.0)
== END 2021-09-20 03:01 | disposition home or self-care (01) ==
PROVIDERS: PCP Family Medicine; Visit Provider Family Medicine
DX: Z79.01 Long term (current) use of anticoagulants (principal); Z95.4 Presence of other heart-valve replacement
CPT/HCPCS: 36415; 85610

== ENCOUNTER 2021-11-21 02:55 | Outpatient (CLI) | payer MEDICARE, SELFPAY ==
[2021-11-21 10:34] LABS: INR 2.2 (0.9-1.1); Prothrombin Time 21.8 sec (9.3-11.0)
== END 2021-11-21 02:56 | disposition home or self-care (01) ==
LOC: LBO 02:55
PROVIDERS: PCP Family Medicine; Visit Provider Family Medicine
DX: I35.0 Nonrheumatic aortic (valve) stenosis (principal); Z95.4 Presence of other heart-valve replacement; Z79.01 Long term (current) use of anticoagulants
CPT/HCPCS: 36415; 85610

== ENCOUNTER 2021-12-02 04:13 | Outpatient (CLI) | payer MEDICARE, SELFPAY ==
[2021-12-02 11:54] LABS: INR 3.6 (0.9-1.1); Prothrombin Time 33.2 sec (9.3-11.0)
== END 2021-12-02 04:14 | disposition home or self-care (01) ==
LOC: LBO 04:13
PROVIDERS: PCP Family Medicine; Visit Provider Family Medicine
DX: I35.0 Nonrheumatic aortic (valve) stenosis (principal); Z95.4 Presence of other heart-valve replacement; Z79.01 Long term (current) use of anticoagulants
CPT/HCPCS: 36415; 85610

== ENCOUNTER 2021-12-09 02:44 | Outpatient (CLI) | payer MEDICARE, SELFPAY ==
[2021-12-09 09:56] LABS: Prothrombin Time 28.4 sec (9.3-11.0)
== END 2021-12-09 02:45 | disposition home or self-care (01) ==
LOC: LBO 02:44
PROVIDERS: PCP Family Medicine; Visit Provider Family Medicine
DX: Z95.4 Presence of other heart-valve replacement (principal); Z79.01 Long term (current) use of anticoagulants; I35.0 Nonrheumatic aortic (valve) stenosis
CPT/HCPCS: 36415; 85610

== ENCOUNTER 2021-12-16 03:49 | Outpatient (CLI) | payer MEDICARE, SELFPAY ==
[2021-12-16 11:58] LABS: INR 2.9 (0.9-1.1)
== END 2021-12-16 03:50 | disposition home or self-care (01) ==
LOC: LBO 03:49
PROVIDERS: PCP Family Medicine; Visit Provider Family Medicine
DX: Z95.4 Presence of other heart-valve replacement (principal); Z79.01 Long term (current) use of anticoagulants; I35.0 Nonrheumatic aortic (valve) stenosis
CPT/HCPCS: 36415; 85610

== ENCOUNTER 2022-01-15 03:50 | Outpatient (CLI) | payer MEDICARE, SELFPAY ==
[2022-01-15 12:57] LABS: Prothrombin Time 28.6 sec (9.3-11.0)
== END 2022-01-15 03:51 | disposition home or self-care (01) ==
LOC: LBO 03:50
PROVIDERS: PCP Family Medicine; Visit Provider Family Medicine
DX: Z95.4 Presence of other heart-valve replacement (principal); Z79.01 Long term (current) use of anticoagulants; I35.0 Nonrheumatic aortic (valve) stenosis
CPT/HCPCS: 36415; 85610

== ENCOUNTER 2022-02-14 01:22 | Outpatient (CLI) | payer MEDICARE, SELFPAY ==
[2022-02-14 11:41] LABS: INR 3.2 (0.9-1.1); Prothrombin Time 30.1 sec (9.3-11.0)
== END 2022-02-14 01:23 | disposition home or self-care (01) ==
LOC: LBO 01:23
PROVIDERS: PCP Family Medicine; Visit Provider Family Medicine
DX: I35.0 Nonrheumatic aortic (valve) stenosis (principal); Z95.4 Presence of other heart-valve replacement; Z79.01 Long term (current) use of anticoagulants
CPT/HCPCS: 36415; 85610

== ENCOUNTER 2022-03-21 02:06 | Outpatient (CLI) | payer MEDICARE, SELFPAY ==
[2022-03-21 16:25] LABS: INR 3.6 (0.9-1.1); Prothrombin Time 33.5 sec (9.3-11.0)
== END 2022-03-21 02:07 | disposition home or self-care (01) ==
LOC: LBO 02:07
PROVIDERS: PCP Family Medicine; Visit Provider Family Medicine
DX: Z95.4 Presence of other heart-valve replacement (principal); Z79.01 Long term (current) use of anticoagulants
CPT/HCPCS: 36415; 85610

== ENCOUNTER → 2022-03-28 00:51 | Outpatient (CLI) | payer MEDICARE, SELFPAY ==
--- NOTE | 2022-03-28 07:00 | DI.MAMMO_ITS ---
Exam(s) MAMMO SCREENING EXAM: MAMMO SCREENING CLINICAL HISTORY: screening,Z12.39. TECHNIQUE: Bilateral full field digital CC and MLO mammographic images were obtained with 3D tomosyn thesis and utilizing computer aided detection (CAD). COMPARISON: Prior mammograms were reviewed, the most recent being November 2020. FINDINGS: No new significant findings in the right breast. In the left breast on the MLO view there is a new small group of microcalcifications located 6-7 cm i n from the nipple. Present benign appearance but should undergo six-month follow-up. No new spiculated masses in either breast. There is no significant architectural distortion nor skin thickening-retraction. IMPRESSION: 1. No radiographic evidence of malignancy in the right breast. 2. New left breast microcalcifications, presently benign appearance. Recommend follow-up left breast diagnostic mammogram in 6 months to ensure stability of this microcalcification group. BI-RADS Category 3 - 6 month - Probably Benign Finding: Recommend follow-up mammography in 6 months Breast Density - Category B - Scattered areas of fibroglandular density Breast density Category C or D implies that the patient has dense breast tissue. Dense breast tissue can make it harder to find cancer on a mammogram. Dense breast tissue is also associated with an incr eased risk of breast cancer. This information about the result of the mammogram report was provided to the patient to raise their awareness. Use this report when you speak with the patient about their risks for breast cancer, which includes their family history. At that time, you may recommend additional screening tests (Ultrasoun d or MRI) as these tests may add significant information. A negative radiographic report should not delay biopsy if a dominant or clinically suspicious mass is present. Up to ten percent of cancers are not identified on mammography. A negative report may reinforce clinical impression. Adenosis and dense breasts may obscure an underlying neoplasm. False positive reports average 6 to 10%. Patient will receive a letter notifying them of these results.
== END ==
PROVIDERS: PCP Family Medicine; Visit Provider Family Medicine
DX: Z12.31 Encounter for screening mammogram for malignant neoplasm of breast (principal); R92.0 Mammographic microcalcification found on diagnostic imaging of breast
CPT/HCPCS: 77063; 77067

== ENCOUNTER 2022-03-28 01:35 | Outpatient (CLI) | payer MEDICARE, SELFPAY ==
[2022-03-28 12:32] LABS: INR 3.3 (0.9-1.1); Prothrombin Time 30.5 sec (9.3-11.0)
== END 2022-03-28 01:36 | disposition home or self-care (01) ==
LOC: LBO 01:35
PROVIDERS: PCP Family Medicine; Visit Provider Family Medicine
DX: Z79.01 Long term (current) use of anticoagulants (principal); I35.0 Nonrheumatic aortic (valve) stenosis
CPT/HCPCS: 36415; 85610

== ENCOUNTER 2022-04-28 02:36 | Outpatient (CLI) | payer MEDICARE, SELFPAY ==
[2022-04-28 11:00] LABS: INR 3.8 (0.9-1.1); Prothrombin Time 34.9 sec (9.3-11.0)
== END 2022-04-28 02:37 | disposition home or self-care (01) ==
LOC: LBO 02:36
PROVIDERS: PCP Family Medicine; Visit Provider Family Medicine
DX: Z79.01 Long term (current) use of anticoagulants (principal); Z95.4 Presence of other heart-valve replacement
CPT/HCPCS: 85610

== ENCOUNTER 2022-05-05 04:18 | Outpatient (CLI) | payer MEDICARE, SELFPAY ==
[2022-05-05 12:01] LABS: HGB 14.1 g/dL (11.2-15.7); MCH 28.7 pg (27.0-33.0); MCHC 32.8 % (32.0-36.0); MCV 88 fL (80-95); MPV 9.9 fL (8.0-11.0); Platelet Count 253 10^3/uL (130-400); RBC 4.91 10^6/uL (3.93-5.22); RDW 14.6 % (11.7-14.6); RDW-SD 47.3 fL; WBC 6.54 10^3/uL (4.4-10.8)
[2022-05-05 12:12] LABS: INR 3.6 (0.9-1.1); Prothrombin Time 33.3 sec (9.3-11.0)
[2022-05-05 12:17] LABS: ALT 34 U/L (14-59); AST 34 U/L (15-37); Albumin 3.7 g/dL (3.4-5.0); Alkaline Phosphatase 80 U/L (46-116); Anion Gap 6.6 mmol/L (3-11); BUN 17 mg/dL (7-18); Bilirubin, Total 0.5 mg/dL (0.2-1.0); CO2 29.4 mmol/L (21.0-32.0); CREATININE 0.9 mg/dL (0.55-1.02); Calcium 9.2 mg/dL (8.5-10.1); Chloride 106 mmol/L (98-107); Glucose 132 mg/dL (74-106); Potassium 3.9 mmol/L (3.5-5.1); Sodium 142 mmol/L (136-145); Total Protein 7.1 g/dL (6.4-8.2)
== END 2022-05-05 04:19 | disposition home or self-care (01) ==
LOC: LBO 04:19
PROVIDERS: PCP Family Medicine; Visit Provider Family Medicine
DX: I10 Essential (primary) hypertension (principal); Z79.01 Long term (current) use of anticoagulants; Z95.4 Presence of other heart-valve replacement
CPT/HCPCS: 36415; 80053; 85027; 85610

== ENCOUNTER 2022-05-12 03:01 | Outpatient (CLI) | payer MEDICARE, SELFPAY ==
[2022-05-12 11:31] LABS: INR 3.8 (0.9-1.1); Prothrombin Time 34.8 sec (9.3-11.0)
== END 2022-05-12 03:02 | disposition home or self-care (01) ==
LOC: LBO 03:02
PROVIDERS: PCP Family Medicine; Visit Provider Family Medicine
DX: I35.0 Nonrheumatic aortic (valve) stenosis (principal); Z95.4 Presence of other heart-valve replacement; Z79.01 Long term (current) use of anticoagulants
CPT/HCPCS: 36415; 85610

== ENCOUNTER 2022-05-19 03:19 | Outpatient (CLI) | payer MEDICARE, SELFPAY ==
[2022-05-19 14:26] LABS: INR 3.3 (0.9-1.1); Prothrombin Time 30.4 sec (9.3-11.0)
== END 2022-05-19 03:20 | disposition home or self-care (01) ==
PROVIDERS: PCP Family Medicine; Visit Provider Family Medicine
DX: I35.0 Nonrheumatic aortic (valve) stenosis (principal); Z95.4 Presence of other heart-valve replacement; Z79.01 Long term (current) use of anticoagulants
CPT/HCPCS: 36415; 85610

== ENCOUNTER 2022-06-02 03:22 | Outpatient (CLI) | payer MEDICARE, SELFPAY ==
[2022-06-02 11:37] LABS: INR 2.6 (0.9-1.1); Prothrombin Time 24.7 sec (9.3-11.0)
== END 2022-06-02 03:23 | disposition home or self-care (01) ==
LOC: LBO 03:23
PROVIDERS: PCP Family Medicine; Visit Provider Family Medicine
DX: I35.0 Nonrheumatic aortic (valve) stenosis (principal); Z95.1 Presence of aortocoronary bypass graft; Z79.01 Long term (current) use of anticoagulants
CPT/HCPCS: 36415; 85610

== ENCOUNTER 2022-07-07 03:07 | Outpatient (CLI) | payer MEDICARE, SELFPAY ==
[2022-07-07 12:09] LABS: INR 3.2 (0.9-1.1); Prothrombin Time 29.7 sec (9.3-11.0)
== END 2022-07-07 03:08 | disposition home or self-care (01) ==
PROVIDERS: PCP Family Medicine; Visit Provider Family Medicine
DX: Z79.01 Long term (current) use of anticoagulants (principal); Z95.4 Presence of other heart-valve replacement
CPT/HCPCS: 36415; 85610

== ENCOUNTER 2022-08-06 01:44 | Outpatient (CLI) | payer MEDICARE, SELFPAY ==
[2022-08-06 11:27] LABS: HCT 43.2 % (36.0-46.0); HGB 13.9 g/dL (11.2-15.7); MCH 27.9 pg (27.0-33.0); MCHC 32.2 % (32.0-36.0); MCV 87 fL (80-95); MPV 9.6 fL (8.0-11.0); Platelet Count 248 10^3/uL (130-400); RBC 4.98 10^6/uL (3.93-5.22); RDW 14.6 % (11.7-14.6); RDW-SD 46.3 fL; WBC 5.41 10^3/uL (4.4-10.8)
[2022-08-06 11:56] LABS: COMMENT (LAB VIEW ONLY) 116.25 mg/dL; INR 1.9 (0.9-1.1); Microalb ug/mg Crea 10.7 ug/mg Cr; Prothrombin Time 19.3 sec (9.3-11.0)
[2022-08-06 11:59] LABS: ALT 40 U/L (14-59); AST 35 U/L (15-37); Albumin 3.8 g/dL (3.4-5.0); Alkaline Phosphatase 85 U/L (46-116); Anion Gap 6.6 mmol/L (3-11); BUN 20 mg/dL (7-18); Bilirubin, Total 0.4 mg/dL (0.2-1.0); CO2 30.4 mmol/L (21.0-32.0); CREATININE 0.9 mg/dL (0.55-1.02); Calcium 9.1 mg/dL (8.5-10.1); Calculated LDL 140 mg/dL (<100); Chloride 105 mmol/L (98-107); Cholesterol 233 mg/dL (<200); Glucose 121 mg/dL (74-106); HDL Cholesterol 42 mg/dL (40-60); Potassium 3.9 mmol/L (3.5-5.1); Sodium 142 mmol/L (136-145); Total Protein 7.1 g/dL (6.4-8.2); Triglyceride 259 mg/dL (<150)
[2022-08-06 12:57] LABS: Hemoglobin A1C 5.8 % (<5.7)
== END 2022-08-06 01:45 | disposition home or self-care (01) ==
PROVIDERS: PCP Family Medicine; Visit Provider Family Medicine
DX: I10 Essential (primary) hypertension (principal); E11.9 Type 2 diabetes mellitus without complications; I35.0 Nonrheumatic aortic (valve) stenosis; Z95.4 Presence of other heart-valve replacement; Z79.01 Long term (current) use of anticoagulants
CPT/HCPCS: 36415; 80053; 80061; 85027; 82043; 82570; 83036; 85610

== ENCOUNTER 2022-08-20 02:49 | Outpatient (CLI) | payer MEDICARE, SELFPAY ==
[2022-08-20 10:57] LABS: INR 3.2 (0.9-1.1); Prothrombin Time 32.5 sec (9.3-11.0)
== END 2022-08-20 02:50 | disposition home or self-care (01) ==
PROVIDERS: PCP Family Medicine; Visit Provider Family Medicine
DX: Z95.4 Presence of other heart-valve replacement (principal); Z79.01 Long term (current) use of anticoagulants
CPT/HCPCS: 36415; 85610

== ENCOUNTER 2022-09-03 02:56 | Outpatient (CLI) | payer MEDICARE, SELFPAY ==
[2022-09-03 11:09] LABS: INR 3.5 (0.9-1.1)
== END 2022-09-03 02:57 | disposition home or self-care (01) ==
PROVIDERS: PCP Family Medicine; Visit Provider Family Medicine
DX: I35.0 Nonrheumatic aortic (valve) stenosis (principal); Z95.4 Presence of other heart-valve replacement; Z79.01 Long term (current) use of anticoagulants
CPT/HCPCS: 36415; 85610

== ENCOUNTER 2022-09-10 03:30 | Outpatient (CLI) | payer MEDICARE, SELFPAY ==
[2022-09-10 12:06] LABS: INR 3.3 (0.9-1.1); Prothrombin Time 33.3 sec (9.3-11.0)
== END 2022-09-10 03:31 | disposition home or self-care (01) ==
PROVIDERS: PCP Family Medicine; Visit Provider Family Medicine
DX: I35.0 Nonrheumatic aortic (valve) stenosis (principal); Z95.4 Presence of other heart-valve replacement; Z79.01 Long term (current) use of anticoagulants
CPT/HCPCS: 36415; 85610

== ENCOUNTER 2022-09-24 03:26 | Outpatient (CLI) | payer MEDICARE, SELFPAY ==
[2022-09-24 12:07] LABS: INR 2.8 (0.9-1.1); Prothrombin Time 27.8 sec (9.3-11.0)
== END 2022-09-24 03:27 | disposition home or self-care (01) ==
PROVIDERS: PCP Family Medicine; Visit Provider Family Medicine
DX: I35.0 Nonrheumatic aortic (valve) stenosis (principal); Z95.4 Presence of other heart-valve replacement; Z79.01 Long term (current) use of anticoagulants
CPT/HCPCS: 36415; 85610

== ENCOUNTER 2022-10-07 01:44 | Outpatient (CLI) | payer MEDICARE, SELFPAY ==
--- NOTE | 2022-10-07 07:00 | DI.MAMMO_ITS ---
Exam(s) MAMMO DIAGNOSTIC UNI EXAM: MAMMO DIAGNOSTIC UNI CLINICAL HISTORY: abnl mammo - left,6 MO F/U,R92.8,MICROCALCIFICATIONS. TECHNIQUE: Craniocaudal and mediolateral oblique Full Field Digital Mammography views of the left br east with Computer Aided Diagnosis followed by Tomosynthesis. COMPARISON: Comparison is made with prior examinations. FINDINGS: Mammography/Tomosynthesis: Masses/Architectural Distortion: None seen. Microcalcifictions: No suspicious pleomorphic-type are seen. The small grouping of calcifications in the posterior superior left breast appears stable. Skin Thickening/Nipple Retraction: None. IMPRESSION: 1. No evidence of malignancy is noted. 2. Unless there is more urgent need, follow-up screening mammography is recommended, as per [employer] guidelines. 3. The findings were discussed with the patient on the date of the examination. BI-RADS Category 2 - Benign Findings Breast Density - Category B - Scattered areas of fibroglandular density Breast density Category C or D implies that the patient has dense breast tissue. Dense breast tissue can make it harder to find cancer on a mammogram. Dense breast tissue is also associated with an incr eased risk of breast cancer. This information about the result of the mammogram report was provided to the patient to raise their awareness. Use this report when you speak with the patient about their risks for breast cancer, which includes their family history. At that time, you may recommend additional screening tests (Ultrasoun d or MRI) as these tests may add significant information. A negative radiographic report should not delay biopsy if a dominant or clinically suspicious mass is present. Up to ten percent of cancers are not identified on mammography. A negative report may reinforce clinical impression. Adenosis and dense breasts may obscure an underlying neoplasm. False positive reports average 6 to 10%. Patient will receive a letter notifying them of these results.
== END 2022-10-07 02:04 ==
LOC: DI 01:45
PROVIDERS: PCP Family Medicine; Visit Provider Family Medicine
DX: R92.8 Other abnormal and inconclusive findings on diagnostic imaging of breast (principal)
CPT/HCPCS: 77061; 77065; G0279

== ENCOUNTER 2022-10-15 02:51 | Outpatient (CLI) | payer MEDICARE, SELFPAY ==
[2022-10-15 11:34] LABS: INR 3.1 (0.9-1.1); Prothrombin Time 31.4 sec (9.3-11.0)
== END 2022-10-15 02:52 | disposition home or self-care (01) ==
LOC: LBO 02:52
PROVIDERS: PCP Family Medicine; Visit Provider Family Medicine
DX: I35.0 Nonrheumatic aortic (valve) stenosis (principal); Z95.4 Presence of other heart-valve replacement; Z79.01 Long term (current) use of anticoagulants
CPT/HCPCS: 36415; 85610

== ENCOUNTER 2022-11-19 04:34 | Outpatient (CLI) | payer MEDICARE, SELFPAY ==
[2022-11-19 11:45] LABS: INR 2.3 (0.9-1.1); Prothrombin Time 23.5 sec (9.3-11.0)
== END 2022-11-19 04:35 | disposition home or self-care (01) ==
PROVIDERS: PCP Family Medicine; Visit Provider Family Medicine
DX: I35.0 Nonrheumatic aortic (valve) stenosis (principal); Z95.4 Presence of other heart-valve replacement; Z79.01 Long term (current) use of anticoagulants
CPT/HCPCS: 36415; 85610

== ENCOUNTER 2022-11-26 04:10 | Outpatient (CLI) | payer MEDICARE, SELFPAY ==
[2022-11-26 11:06] LABS: INR 2.2 (0.9-1.1); Prothrombin Time 22.6 sec (9.3-11.0)
== END 2022-11-26 04:11 | disposition home or self-care (01) ==
PROVIDERS: PCP Family Medicine; Visit Provider Family Medicine
DX: I35.0 Nonrheumatic aortic (valve) stenosis (principal); Z95.4 Presence of other heart-valve replacement; Z79.01 Long term (current) use of anticoagulants
CPT/HCPCS: 36415; 85610

== ENCOUNTER 2022-12-03 03:37 | Outpatient (CLI) | payer MEDICARE, SELFPAY ==
[2022-12-03 12:26] LABS: INR 2.6 (0.9-1.1)
== END 2022-12-03 03:38 | disposition home or self-care (01) ==
LOC: LBO 03:38
PROVIDERS: PCP Family Medicine; Visit Provider Family Medicine
DX: I35.0 Nonrheumatic aortic (valve) stenosis (principal); Z95.4 Presence of other heart-valve replacement; Z79.01 Long term (current) use of anticoagulants
CPT/HCPCS: 36415; 85610

== ENCOUNTER 2022-12-17 02:36 | Outpatient (CLI) | payer MEDICARE, SELFPAY ==
[2022-12-17 11:03] LABS: INR 3.8 (0.9-1.1); Prothrombin Time 37.9 sec (9.3-11.0)
== END 2022-12-17 02:37 | disposition home or self-care (01) ==
LOC: LBO 02:36
PROVIDERS: PCP Family Medicine; Visit Provider Family Medicine
DX: Z79.01 Long term (current) use of anticoagulants (principal)
CPT/HCPCS: 36415; 85610

== ENCOUNTER 2022-12-31 02:42 | Outpatient (CLI) | payer MEDICARE, SELFPAY ==
[2022-12-31 11:17] LABS: INR 2.4 (0.9-1.1); Prothrombin Time 24.5 sec (9.3-11.0)
== END 2022-12-31 02:43 | disposition home or self-care (01) ==
PROVIDERS: PCP Family Medicine; Visit Provider Family Medicine
DX: I35.0 Nonrheumatic aortic (valve) stenosis (principal); Z95.4 Presence of other heart-valve replacement; Z79.01 Long term (current) use of anticoagulants
CPT/HCPCS: 36415; 85610

== ENCOUNTER 2023-01-07 04:15 | Outpatient (CLI) | payer MEDICARE, SELFPAY ==
[2023-01-07 12:14] LABS: INR 2.8 (0.9-1.1); Prothrombin Time 28.4 sec (9.3-11.0)
== END 2023-01-07 04:16 | disposition home or self-care (01) ==
PROVIDERS: PCP Family Medicine; Visit Provider Family Medicine
DX: Z79.01 Long term (current) use of anticoagulants (principal); Z51.81 Encounter for therapeutic drug level monitoring
CPT/HCPCS: 36415; 85610

== ENCOUNTER 2023-01-15 04:02 | Outpatient (CLI) | payer MEDICARE, SELFPAY ==
[2023-01-15 10:27] LABS: INR 3.5 (0.9-1.1); Prothrombin Time 34.8 sec (9.3-11.0)
== END 2023-01-15 04:03 | disposition home or self-care (01) ==
PROVIDERS: PCP Family Medicine; Visit Provider Family Medicine
DX: Z79.01 Long term (current) use of anticoagulants (principal)
CPT/HCPCS: 36415; 85610

== ENCOUNTER 2023-01-23 01:53 | Outpatient (CLI) | payer MEDICARE, SELFPAY ==
[2023-01-23 10:42] LABS: INR 3.3 (0.9-1.1); Prothrombin Time 33.1 sec (9.3-11.0)
== END 2023-01-23 01:54 | disposition home or self-care (01) ==
PROVIDERS: PCP Family Medicine; Visit Provider Family Medicine
DX: I35.0 Nonrheumatic aortic (valve) stenosis (principal); Z95.4 Presence of other heart-valve replacement; Z79.01 Long term (current) use of anticoagulants; R79.1 Abnormal coagulation profile
CPT/HCPCS: 36415; 85610

== ENCOUNTER 2023-02-06 02:44 | Outpatient (CLI) | payer MEDICARE, SELFPAY | END 2023-02-06 02:45 | disposition home or self-care (01) | PROVIDERS: PCP Family Medicine; Visit Provider Family Medicine | DX: I35.0 Nonrheumatic aortic (valve) stenosis (principal); Z95.4 Presence of other heart-valve replacement; Z79.01 Long term (current) use of anticoagulants | CPT/HCPCS: 36415; 85610 ==

== ENCOUNTER 2023-03-13 01:51 | Outpatient (CLI) | payer MEDICARE, SELFPAY ==
[2023-03-13 11:02] LABS: INR 3.7 (0.9-1.1); Prothrombin Time 37.1 sec (9.3-11.0)
== END 2023-03-13 01:52 | disposition home or self-care (01) ==
PROVIDERS: PCP Family Medicine; Visit Provider Family Medicine
DX: I35.0 Nonrheumatic aortic (valve) stenosis (principal); Z95.4 Presence of other heart-valve replacement; Z79.01 Long term (current) use of anticoagulants
CPT/HCPCS: 36415; 85610

== ENCOUNTER 2023-03-20 03:28 | Outpatient (CLI) | payer MEDICARE, SELFPAY ==
[2023-03-20 11:38] LABS: Prothrombin Time 47.5 sec (9.3-11.0)
[2023-03-20 11:44] LABS: INR 4.7 (0.9-1.1)
== END 2023-03-20 03:29 | disposition home or self-care (01) ==
PROVIDERS: PCP Family Medicine; Visit Provider Family Medicine
DX: I35.0 Nonrheumatic aortic (valve) stenosis (principal); Z95.4 Presence of other heart-valve replacement; Z79.01 Long term (current) use of anticoagulants
CPT/HCPCS: 36415; 85610

== ENCOUNTER 2023-03-27 02:35 | Outpatient (CLI) | payer MEDICARE, SELFPAY ==
[2023-03-27 11:30] LABS: INR 2.7 (0.9-1.1)
== END 2023-03-27 02:36 | disposition home or self-care (01) ==
PROVIDERS: PCP Family Medicine; Visit Provider Family Medicine
DX: Z79.01 Long term (current) use of anticoagulants (principal); I35.8 Other nonrheumatic aortic valve disorders
CPT/HCPCS: 36415; 85610

== ENCOUNTER → 2023-04-01 00:40 | Outpatient (CLI) | payer MEDICARE, SELFPAY ==
--- NOTE | 2023-04-01 07:16 | DI.MAMMO_ITS ---
Exam(s) MAMMO SCREENING EXAM: MAMMO SCREENING CLINICAL HISTORY: breast cancer screening TECHNIQUE: Mammograms were interpreted according to the usual protocol including computer analysis w [employer] CAD system, tomosynthesis and C-view imaging. COMPARISON: 2013 through 07 October 2022 FINDINGS: The breasts are composed of mainly fatty density , Breast Density category A. No suspicious masses or suspicious microcalcifications are seen. No skin thickening or abnormal axillary lymph nodes are seen. There has been no significant change from prior exams. IMPRESSION: BI-RADS Category 1, Negative mammogram Yearly screening mammography is recommended. Breast Density - Category A, fatty density. A negative radiographic report should not delay biopsy if a dominant or clinically suspicious mass is present. Up to ten percent of cancers are not identified on mammography. A negative report may reinforce clinical impression. Adenosis and dense breasts may obscure an underlying neoplasm. False positive reports average 6 to 10%. Patient will receive a letter notifying them of these results.
== END ==
PROVIDERS: PCP Family Medicine; Visit Provider Family Medicine
DX: Z12.31 Encounter for screening mammogram for malignant neoplasm of breast (principal)
CPT/HCPCS: 77063; 77067

== ENCOUNTER 2023-04-03 04:51 | Outpatient (CLI) | payer MEDICARE, SELFPAY ==
[2023-04-03 10:30] LABS: INR 2.7 (0.9-1.1); Prothrombin Time 25.3 sec (9.1-11.1)
== END 2023-04-03 04:52 | disposition home or self-care (01) ==
LOC: LBO 04:51
PROVIDERS: PCP Family Medicine; Visit Provider Family Medicine
DX: I35.0 Nonrheumatic aortic (valve) stenosis (principal); Z95.4 Presence of other heart-valve replacement; Z79.01 Long term (current) use of anticoagulants
CPT/HCPCS: 36415; 85610

== ENCOUNTER 2023-04-17 01:54 | Outpatient (CLI) | payer MEDICARE, SELFPAY ==
[2023-04-17 11:26] LABS: INR 2.7 (0.9-1.1); Prothrombin Time 24.5 sec (9.1-11.1)
== END 2023-04-17 01:55 | disposition home or self-care (01) ==
PROVIDERS: PCP Family Medicine; Visit Provider Family Medicine
DX: Z79.01 Long term (current) use of anticoagulants (principal); I35.8 Other nonrheumatic aortic valve disorders
CPT/HCPCS: 36415; 85610

== ENCOUNTER 2023-05-19 03:11 | Outpatient (CLI) | payer MEDICARE, SELFPAY ==
[2023-05-19 11:12] LABS: INR 2.8 (0.9-1.1)
== END 2023-05-19 03:12 | disposition home or self-care (01) ==
PROVIDERS: PCP Family Medicine; Visit Provider Family Medicine
DX: Z79.01 Long term (current) use of anticoagulants (principal)
CPT/HCPCS: 36415; 85610

== ENCOUNTER 2023-05-27 02:44 | Outpatient (CLI) | payer MEDICARE, SELFPAY ==
[2023-05-27 16:17] LABS: INR 2.6 (0.9-1.1); Prothrombin Time 23.9 sec (9.1-11.1)
== END 2023-05-27 02:45 | disposition home or self-care (01) ==
LOC: LBO 02:45
PROVIDERS: PCP Family Medicine; Visit Provider Family Medicine
DX: Z79.01 Long term (current) use of anticoagulants (principal)
CPT/HCPCS: 36415; 85610

== ENCOUNTER 2023-06-01 04:51 | Outpatient (CLI) | payer MEDICARE, SELFPAY ==
[2023-06-01 12:01] LABS: INR 2.1 (0.9-1.1); Prothrombin Time 19.4 sec (9.1-11.1)
== END 2023-06-01 04:52 | disposition home or self-care (01) ==
PROVIDERS: PCP Family Medicine; Visit Provider Family Medicine
DX: I35.0 Nonrheumatic aortic (valve) stenosis (principal); Z95.4 Presence of other heart-valve replacement; Z79.01 Long term (current) use of anticoagulants
CPT/HCPCS: 36415; 85610

== ENCOUNTER 2023-06-03 17:03 | Outpatient (REF) | payer MEDICARE, SELFPAY | END 2023-06-03 17:04 | disposition home or self-care (01) | LOC: LBN 17:03 | PROVIDERS: PCP Family Medicine; Visit Provider Nurse Practitioner Family | DX: L98.8 Other specified disorders of the skin and subcutaneous tissue (principal); L72.0 Epidermal cyst | CPT/HCPCS: 87070; 87205 ==

== ENCOUNTER 2023-06-08 03:55 | Outpatient (CLI) | payer MEDICARE, SELFPAY ==
[2023-06-08 12:05] LABS: INR 1.7 (0.9-1.1); Prothrombin Time 16.7 sec (9.1-11.1)
== END 2023-06-08 03:56 | disposition home or self-care (01) ==
LOC: LBO 03:55
PROVIDERS: PCP Family Medicine; Visit Provider Family Medicine
DX: Z79.01 Long term (current) use of anticoagulants (principal)
CPT/HCPCS: 36415; 85610

== ENCOUNTER 2023-06-16 03:34 | Outpatient (CLI) | payer MEDICARE, SELFPAY ==
[2023-06-16 11:48] LABS: INR 2.8 (0.9-1.1); Prothrombin Time 25.9 sec (9.1-11.1)
== END 2023-06-16 03:35 | disposition home or self-care (01) ==
PROVIDERS: PCP Family Medicine; Visit Provider Family Medicine
DX: I35.0 Nonrheumatic aortic (valve) stenosis (principal); Z95.4 Presence of other heart-valve replacement; Z79.01 Long term (current) use of anticoagulants
CPT/HCPCS: 36415; 85610

== ENCOUNTER 2023-07-21 02:11 | Outpatient (CLI) | payer MEDICARE, SELFPAY ==
[2023-07-21 11:51] LABS: INR 2.9 (0.9-1.1); Prothrombin Time 26.2 sec (9.1-11.1)
== END 2023-07-21 02:12 | disposition home or self-care (01) ==
PROVIDERS: PCP Family Medicine; Visit Provider Family Medicine
DX: I35.0 Nonrheumatic aortic (valve) stenosis (principal); Z95.4 Presence of other heart-valve replacement; Z79.01 Long term (current) use of anticoagulants
CPT/HCPCS: 36415; 85610

== ENCOUNTER 2023-08-25 04:46 | Outpatient (CLI) | payer MEDICARE, SELFPAY ==
[2023-08-25 17:03] LABS: INR 3.7 (0.9-1.1); Prothrombin Time 33.1 sec (9.1-11.1)
== END 2023-08-25 04:47 | disposition home or self-care (01) ==
LOC: LBO 04:49
PROVIDERS: PCP Family Medicine; Visit Provider Family Medicine
DX: Z79.01 Long term (current) use of anticoagulants (principal)
CPT/HCPCS: 36415; 85027; 85610

== ENCOUNTER 2023-09-01 04:17 | Outpatient (CLI) | payer MEDICARE, SELFPAY ==
[2023-09-01 11:51] LABS: INR 2.1 (0.9-1.1); Prothrombin Time 19.5 sec (9.1-11.1)
== END 2023-09-01 04:18 | disposition home or self-care (01) ==
PROVIDERS: PCP Family Medicine; Visit Provider Family Medicine
DX: I35.0 Nonrheumatic aortic (valve) stenosis (principal); Z95.4 Presence of other heart-valve replacement; Z79.01 Long term (current) use of anticoagulants
CPT/HCPCS: 36415; 85610

== ENCOUNTER 2023-09-08 04:32 | Outpatient (CLI) | payer MEDICARE, SELFPAY ==
[2023-09-08 12:55] LABS: Prothrombin Time 18.9 sec (9.1-11.1)
== END 2023-09-08 04:33 | disposition home or self-care (01) ==
LOC: LBO 04:33
PROVIDERS: PCP Family Medicine; Visit Provider Family Medicine
DX: Z79.01 Long term (current) use of anticoagulants (principal)
CPT/HCPCS: 36415; 85610

== ENCOUNTER 2023-09-15 05:15 | Outpatient (CLI) | payer MEDICARE, SELFPAY ==
[2023-09-15 13:17] LABS: Prothrombin Time 27.4 sec (9.1-11.1)
== END 2023-09-15 05:16 | disposition home or self-care (01) ==
PROVIDERS: PCP Family Medicine; Visit Provider Family Medicine
DX: Z79.01 Long term (current) use of anticoagulants (principal)
CPT/HCPCS: 36415; 85610

== ENCOUNTER 2023-09-22 04:51 | Outpatient (CLI) | payer MEDICARE, SELFPAY ==
[2023-09-22 11:15] LABS: INR 2.7 (0.9-1.1); Prothrombin Time 24.8 sec (9.1-11.1)
== END 2023-09-22 04:52 | disposition home or self-care (01) ==
LOC: LBO 04:51
PROVIDERS: PCP Family Medicine; Visit Provider Family Medicine
DX: I35.0 Nonrheumatic aortic (valve) stenosis (principal); Z95.1 Presence of aortocoronary bypass graft; Z79.01 Long term (current) use of anticoagulants; R79.1 Abnormal coagulation profile
CPT/HCPCS: 36415; 85610

== ENCOUNTER 2023-10-01 05:29 | Outpatient (CLI) | payer MEDICARE, SELFPAY ==
[2023-10-01 13:55] LABS: HCT 39.7 % (36.0-46.0); HGB 12.6 g/dL (11.2-15.7); MCH 27.3 pg (27.0-33.0); MCHC 31.7 % (32.0-36.0); MCV 86 fL (80-95); MPV 8.8 fL (8.0-11.0); Platelet Count 247 10^3/uL (130-400); RBC 4.61 10^6/uL (3.93-5.22); RDW 14.7 % (11.7-14.6); RDW-SD 46.7 fL; WBC 6.68 10^3/uL (4.4-10.8)
== END 2023-10-01 05:30 | disposition home or self-care (01) ==
PROVIDERS: PCP Family Medicine; Visit Provider Family Medicine
DX: Z79.01 Long term (current) use of anticoagulants (principal)
CPT/HCPCS: 36415; 85027

== ENCOUNTER 2023-10-23 04:56 | Outpatient (CLI) | payer MEDICARE, SELFPAY ==
[2023-10-23 11:46] LABS: Prothrombin Time 36.5 sec (9.1-11.1)
[2023-10-23 11:52] LABS: INR 4.1 (0.9-1.1)
== END 2023-10-23 04:57 | disposition home or self-care (01) ==
PROVIDERS: PCP Family Medicine; Visit Provider Family Medicine
DX: I35.8 Other nonrheumatic aortic valve disorders (principal)
CPT/HCPCS: 36415; 85610

== ENCOUNTER 2023-10-30 01:54 | Outpatient (CLI) | payer MEDICARE, SELFPAY ==
[2023-10-30 11:04] LABS: Prothrombin Time 40.3 sec (9.1-11.1)
[2023-10-30 11:11] LABS: INR 4.6 (0.9-1.1)
== END 2023-10-30 01:55 | disposition home or self-care (01) ==
PROVIDERS: PCP Family Medicine; Visit Provider Family Medicine
DX: I35.8 Other nonrheumatic aortic valve disorders (principal)
CPT/HCPCS: 36415; 85610

== ENCOUNTER 2023-11-02 13:39 | Outpatient (CLI) | payer MEDICARE, SELFPAY ==
[2023-11-02 12:25] LABS: INR 1.5 (0.9-1.1); Prothrombin Time 14.7 sec (9.1-11.1)
== END 2023-11-02 13:40 | disposition home or self-care (01) ==
LOC: LBO 13:40
PROVIDERS: PCP Family Medicine; Visit Provider Family Medicine
DX: I35.8 Other nonrheumatic aortic valve disorders (principal)
CPT/HCPCS: 36415; 85610

== ENCOUNTER 2023-11-10 05:10 | Outpatient (CLI) | payer MEDICARE, SELFPAY ==
[2023-11-10 12:30] LABS: INR 2.8 (0.9-1.1); Prothrombin Time 25.4 sec (9.1-11.1)
== END 2023-11-10 05:11 | disposition home or self-care (01) ==
PROVIDERS: PCP Family Medicine; Visit Provider Family Medicine
DX: I35.8 Other nonrheumatic aortic valve disorders (principal)
CPT/HCPCS: 36415; 85610

== ENCOUNTER 2023-11-18 05:15 | Outpatient (CLI) | payer MEDICARE, SELFPAY ==
[2023-11-18 10:21] LABS: INR 3.7 (0.9-1.1); Prothrombin Time 32.9 sec (9.1-11.1)
== END 2023-11-18 05:16 | disposition home or self-care (01) ==
PROVIDERS: PCP Family Medicine; Visit Provider Family Medicine
DX: I35.0 Nonrheumatic aortic (valve) stenosis (principal); Z95.4 Presence of other heart-valve replacement; Z79.01 Long term (current) use of anticoagulants
CPT/HCPCS: 36415; 85610

== ENCOUNTER 2023-11-25 05:30 | Outpatient (CLI) | payer MEDICARE, SELFPAY ==
[2023-11-25 11:06] LABS: Prothrombin Time 35.2 sec (9.1-11.1)
[2023-11-25 11:07] LABS: INR 3.9 (0.9-1.1)
== END 2023-11-25 05:31 | disposition home or self-care (01) ==
LOC: LBO 05:32
PROVIDERS: PCP Family Medicine; Visit Provider Family Medicine
DX: I35.8 Other nonrheumatic aortic valve disorders (principal); Z95.4 Presence of other heart-valve replacement; Z79.01 Long term (current) use of anticoagulants
CPT/HCPCS: 36415; 85610

== ENCOUNTER 2023-12-02 01:52 | Outpatient (CLI) | payer MEDICARE, SELFPAY ==
[2023-12-02 12:54] LABS: INR 3.7 (0.9-1.1); Prothrombin Time 32.8 sec (9.1-11.1)
== END 2023-12-02 01:53 | disposition home or self-care (01) ==
PROVIDERS: PCP Family Medicine; Visit Provider Family Medicine
DX: I35.8 Other nonrheumatic aortic valve disorders (principal)
CPT/HCPCS: 36415; 85610

== ENCOUNTER 2023-12-16 01:38 | Outpatient (CLI) | payer MEDICARE, SELFPAY ==
[2023-12-16 11:18] LABS: INR 2.7 (0.9-1.1); Prothrombin Time 24.6 sec (9.1-11.1)
== END 2023-12-16 01:39 | disposition home or self-care (01) ==
PROVIDERS: PCP Family Medicine; Visit Provider Family Medicine
DX: I35.8 Other nonrheumatic aortic valve disorders (principal)
CPT/HCPCS: 36415; 85610

== ENCOUNTER 2023-12-30 02:21 | Outpatient (CLI) | payer MEDICARE, SELFPAY ==
[2023-12-30 12:23] LABS: INR 2.6 (0.9-1.1); Prothrombin Time 23.9 sec (9.1-11.1)
== END 2023-12-30 02:22 | disposition home or self-care (01) ==
PROVIDERS: PCP Family Medicine; Visit Provider Family Medicine
DX: I35.8 Other nonrheumatic aortic valve disorders (principal)
CPT/HCPCS: 36415; 85610

== ENCOUNTER 2024-01-13 01:27 | Outpatient (CLI) | payer MEDICARE, SELFPAY ==
[2024-01-13 11:13] LABS: INR 2.4 (0.9-1.1); Prothrombin Time 22.7 sec (9.1-11.1)
== END 2024-01-13 01:28 | disposition home or self-care (01) ==
PROVIDERS: PCP Family Medicine; Referring Provider Family Medicine; Visit Provider Family Medicine
DX: I35.8 Other nonrheumatic aortic valve disorders (principal)
CPT/HCPCS: 36415; 85610

== ENCOUNTER 2024-01-20 02:44 | Outpatient (CLI) | payer MEDICARE, SELFPAY ==
[2024-01-20 17:04] LABS: INR 2.3 (0.9-1.1); Prothrombin Time 21.2 sec (9.1-11.1)
== END 2024-01-20 02:45 | disposition home or self-care (01) ==
LOC: LBO 02:44
PROVIDERS: PCP Family Medicine; Visit Provider Family Medicine
DX: I35.8 Other nonrheumatic aortic valve disorders (principal)
CPT/HCPCS: 36415; 85610

== ENCOUNTER 2024-02-05 01:46 | Outpatient (CLI) | payer MEDICARE, SELFPAY ==
[2024-02-05 10:51] LABS: INR 2.6 (0.9-1.1); Prothrombin Time 23.9 sec (9.1-11.1)
== END 2024-02-05 01:47 | disposition home or self-care (01) ==
PROVIDERS: PCP Family Medicine; Visit Provider Family Medicine
DX: I35.8 Other nonrheumatic aortic valve disorders (principal); I10 Essential (primary) hypertension
CPT/HCPCS: 36415; 80053; 80061; 85610

== ENCOUNTER 2024-02-19 01:33 | Outpatient (CLI) | payer MEDICARE, SELFPAY ==
[2024-02-19 11:38] LABS: INR 3.3 (0.9-1.1); Prothrombin Time 29.7 sec (9.1-11.1)
[2024-02-19 12:47] LABS: ALT 37 U/L (14-59); AST 34 U/L (15-37); Albumin 3.6 g/dL (3.4-5.0); Alkaline Phosphatase 78 U/L (46-116); Anion Gap 7.8 mmol/L (3-11); BUN 20 mg/dL (7-18); Bilirubin, Total 0.37 mg/dL (0.2-1.0); CO2 29.2 mmol/L (21.0-32.0); CREATININE 0.9 mg/dL (0.55-1.02); Calcium 8.9 mg/dL (8.5-10.1); Calculated LDL 128 mg/dL (<100); Chloride 107 mmol/L (98-107); Cholesterol 218 mg/dL (<200); Estimated GFR 66.67 (mL/min/1.73m2); Glucose 128 mg/dL (74-106); HDL Cholesterol 39 mg/dL (40-60); Potassium 4.2 mmol/L (3.5-5.1); Sodium 144 mmol/L (136-145); Total Protein 6.5 g/dL (6.4-8.2); Triglyceride 258 mg/dL (<150)
== END 2024-02-19 01:34 | disposition home or self-care (01) ==
PROVIDERS: PCP Family Medicine; Visit Provider Family Medicine
DX: I10 Essential (primary) hypertension (principal); I35.8 Other nonrheumatic aortic valve disorders
CPT/HCPCS: 36415; 80053; 80061; 85610

== ENCOUNTER 2024-08-22 11:00 | Outpatient (CLI) | payer MEDICARE, SELFPAY ==
[2024-08-22 12:29] LABS: HCT 38.3 % (36.0-46.0); HGB 11.6 g/dL (11.2-15.7); MCH 24.9 pg (27.0-33.0); MCHC 30.3 % (32.0-36.0); MCV 82 fL (80-95); MPV 10.1 fL (8.0-11.0); Platelet Count 267 10^3/uL (130-400); RBC 4.66 10^6/uL (3.93-5.22); RDW 15.9 % (11.7-14.6); RDW-SD 47.6 fL; WBC 6.31 10^3/uL (4.4-10.8)
[2024-08-22 12:55] LABS: Hemoglobin A1C 6.3 % (<5.7)
[2024-08-22 13:23] LABS: ALT 40 U/L (14-59); AST 46 U/L (15-37); Albumin 3.7 g/dL (3.4-5.0); Alkaline Phosphatase 78 U/L (46-116); Anion Gap 6.7 mmol/L (3-11); BUN 20 mg/dL (7-18); Bilirubin, Total 0.46 mg/dL (0.2-1.0); CO2 30.3 mmol/L (21.0-32.0); Calculated LDL 131 mg/dL (<100); Chloride 106 mmol/L (98-107); Cholesterol 228 mg/dL (<200); Estimated GFR 58.75 (mL/min/1.73m2); Glucose 128 mg/dL (74-106); HDL Cholesterol 43 mg/dL (>or=50); Magnesium 2.1 mg/dL (1.8-2.4); Sodium 143 mmol/L (136-145); Total Protein 7.2 g/dL (6.4-8.2); Triglyceride 273 mg/dL (<150); Vitamin B12 272 pg/mL (193-986)
== END 2024-08-22 11:01 | disposition home or self-care (01) ==
LOC: LOS 11:00
PROVIDERS: PCP Family Medicine; Referring Provider Family Medicine; Visit Provider Family Medicine
DX: I10 Essential (primary) hypertension (principal); R25.2 Cramp and spasm; E53.8 Deficiency of other specified B group vitamins; Z79.01 Long term (current) use of anticoagulants; E11.9 Type 2 diabetes mellitus without complications
CPT/HCPCS: 36415; 80053; 80061; 85027; 82607; 83036; 83735

== ENCOUNTER 2024-09-15 01:45 | Outpatient (CLI) | payer MEDICARE, SELFPAY ==
--- NOTE | 2024-09-15 08:09 | DI.MAMMO_ITS ---
Exam(s) MAMMO SCREENING EXAM: MAMMO SCREENING CLINICAL HISTORY: screening,z12.39. TECHNIQUE: Bilateral full field digital CC and MLO mammographic images were obtained with 3D tomosyn thesis and utilizing computer aided detection (CAD). COMPARISON: Prior mammograms were reviewed. FINDINGS: There has been no significant change in the appearance and distribution of the fibroglandular tissue. Asymmetric density calcifications in the right breast are unchanged from prior studies. Small group of benign-appearing microcalcifications in the left breast is noted. There are no new spiculated masses nor new malignant appearing microcalcification groups. There is no significant architectural distortion nor skin thickening-retraction. IMPRESSION: No radiographic evidence of malignancy. BI-RADS Category 2 - Benign Findings Breast Density - Category A - Almost entirely fatty Breast density Category C or D implies that the patient has dense breast tissue. Dense breast tissue can make it harder to find cancer on a mammogram. Dense breast tissue is also associated with an incr eased risk of breast cancer. This information about the result of the mammogram report was provided to the patient to raise their awareness. Use this report when you speak with the patient about their risks for breast cancer, which includes their family history. At that time, you may recommend additional screening tests (Ultrasoun d or MRI) as these tests may add significant information. A negative radiographic report should not delay biopsy if a dominant or clinically suspicious mass is present. Up to ten percent of cancers are not identified on mammography. A negative report may reinforce clinical impression. Adenosis and dense breasts may obscure an underlying neoplasm. False positive reports average 6 to 10%. Patient will receive a letter notifying them of these results.
== END 2024-09-15 02:05 ==
LOC: DI 01:45
PROVIDERS: PCP Family Medicine; Visit Provider Family Medicine
DX: Z12.31 Encounter for screening mammogram for malignant neoplasm of breast (principal); R92.313 Mammographic fatty tissue density, bilateral breasts; D24.2 Benign neoplasm of left breast
CPT/HCPCS: 77063; 77067

== ENCOUNTER 2024-12-26 13:30 | Outpatient (REF) | payer MEDICARE, SELFPAY | END 2024-12-26 13:31 | disposition home or self-care (01) | LOC: LBN 13:30 | PROVIDERS: PCP Family Medicine; Visit Provider Nurse Practitioner Family | DX: L98.9 Disorder of the skin and subcutaneous tissue, unspecified (principal) | CPT/HCPCS: 87077; 87070; 87186; 87205 ==